=== PATIENT | male | born 1940 | race Caucasian/White ===

== ENCOUNTER 2021-07-03 05:42 | Outpatient (REF) | payer MEDICARE, BC, SELFPAY ==
[2021-07-05 15:27] LABS: TS Negative Control Passed; TS Panel A 0; TS Panel B 0; TS Positive Control Passed; TSpotTB Negative (Negative)
== END 2021-07-03 05:43 | disposition home or self-care (01) ==
LOC: HO.HSH2E 05:42
PROVIDERS: Visit Provider Nurse Practitioner Acute Care
DX: Z86.11 Personal history of tuberculosis (principal)
CPT/HCPCS: 36415; 86481

== ENCOUNTER 2021-07-14 14:42 | Outpatient (REF) | payer MEDICARE, BC, SELFPAY ==
[2021-07-14 16:23] LABS: CDiff Gene PCR NEGATIVE (Negative)
== END 2021-07-14 14:43 | disposition home or self-care (01) ==
LOC: HO.HSH2E 14:42
PROVIDERS: Visit Provider Internal Medicine Medical Oncology
DX: R19.7 Diarrhea, unspecified (principal)
CPT/HCPCS: 36415; 87045; 87046; 87177; 87209; 87493

== ENCOUNTER 2021-07-24 07:49 | Outpatient (REF) | payer MEDICARE, BC, SELFPAY ==
[2021-07-24 07:47] LABS: MANUAL DIFF FLAG NO
[2021-07-24 07:53] LABS: Basophils Percent Auto 0.2 % (0-2); Eosinophils Absolute Auto 0.2 X10*3/uL (0.0-0.4); Eosinophils Percent Auto 1.9 % (0-4); Hematocrit 41.8 % (42.0-52.0); Hemoglobin 12.8 g/dl (14.0-18.0); Imm Gran Abs Auto 0.02 X10*3/uL (0.00-0.03); Imm Gran Pct Auto 0.2 % (0.0-0.4); Lymphocytes Absolute Auto 1.6 X10*3/uL (1.2-4.9); Lymphocytes Percent Auto 18.9 % (20-40); Mean Corpuscular HGB Conc 30.6 g/dl (31.0-36.0); Mean Corpuscular Hemoglobin 26.9 pg (27.0-33.0); Mean Corpuscular Volume 87.8 fL (80.0-98.0); Mean Platelet Volume 11.8 fL (9.4-12.4); Monocytes Absolute Auto 0.9 X10*3/uL (0.1-1.2); Monocytes Percent Auto 10.5 % (2-11); Neutrophils Absolute Auto 5.9 x10*3/uL (2.0-8.3); Neutrophils Percent Auto 68.3 % (45-73); Platelet Count 166 X10*3/uL (160-400); Red Blood Count 4.76 X10*6/uL (4.60-5.80); Red Cell Distribution Width 14.7 % (11.0-16.0); White Blood Count 8.6 X10*3/uL (4.8-10.8)
[2021-07-24 08:43] LABS: Alanine Aminotransferase 13 U/L (0-40); Albumin Level 3.2 g/dL (3.5-5.0); Alkaline Phosphatase 95 U/L (39-117); Anion Gap 13 (12-20); Aspartate Amino Transferase 16 U/L (5-37); Bilirubin Total 0.4 mg/dL (0.0-1.0); Blood Urea Nitrogen 18 mg/dL (9-16); Calcium 8.8 mg/dL (8.4-10.2); Carbon Dioxide 34 mmol/L (22-29); Chloride 100 mmol/L (96-108); Estimated Glomerular Filt Rate > 60; Glucose Fasting 129 mg/dL (60-99); Potassium 4.1 mmol/L (3.3-5.1); Sodium 143 mmol/L (135-145)
[2021-07-24 09:05] LABS: Thyroid Stimulating Hormone 0.92 uIU/mL (0.32-4.0); Vitamin D 25-OH Total 43.2 ng/mL (>30)
[2021-07-24 09:13] LABS: Folate 12.8 ng/mL (> or = 4.0); Vitamin B12 842 pg/mL (200-900)
== END 2021-07-24 07:50 | disposition home or self-care (01) ==
LOC: HO.HSH2E 07:49
PROVIDERS: Visit Provider Internal Medicine Medical Oncology
DX: D64.9 Anemia, unspecified (principal)
CPT/HCPCS: 36415; 80053; 82306; 82607; 82746; 84443; 85025

== ENCOUNTER 2021-09-15 13:14 | Outpatient (REF) | payer MEDICARE, BC, SELFPAY ==
[2021-09-15 13:49] LABS: B Type Natriuretic Peptide 80 pg/mL (<100)
== END 2021-09-15 13:15 | disposition home or self-care (01) ==
LOC: HO.HSH2E 13:14
PROVIDERS: Visit Provider Internal Medicine
DX: R09.02 Hypoxemia (principal)
CPT/HCPCS: 36415; 83880

== ENCOUNTER 2021-09-17 05:45 | Outpatient (REF) | payer MEDICARE, BC, SELFPAY ==
[2021-09-17 07:47] LABS: MANUAL DIFF FLAG NO
[2021-09-17 07:53] LABS: Appearance Urine CLEAR; Color Urine YELLOW; Glucose Urine UA NEG (NEG); Leukocyte Esterase Urine TRACE (NEG); Nitrite Urine NEG (NEG); Urine Blood NEG (NEG); Urine Ketones 40 MG/DL (NEG); Urine Protein TRACE MG/DL (NEG-TRACE)
[2021-09-17 07:57] LABS: Basophils Percent Auto 0.1 % (0-2); Eosinophils Absolute Auto 0.1 X10*3/uL (0.0-0.4); Eosinophils Percent Auto 0.5 % (0-4); Hematocrit 39.9 % (42.0-52.0); Hemoglobin 12.7 g/dl (14.0-18.0); Imm Gran Abs Auto 0.07 X10*3/uL (0.00-0.03); Imm Gran Pct Auto 0.6 % (0.0-0.4); Lymphocytes Percent Auto 9.2 % (20-40); Mean Corpuscular HGB Conc 31.8 g/dl (31.0-36.0); Mean Corpuscular Hemoglobin 27.6 pg (27.0-33.0); Mean Corpuscular Volume 86.7 fL (80.0-98.0); Mean Platelet Volume 12.2 fL (9.4-12.4); Monocytes Absolute Auto 1.4 X10*3/uL (0.1-1.2); Monocytes Percent Auto 13.1 % (2-11); Neutrophils Absolute Auto 8.3 x10*3/uL (2.0-8.3); Neutrophils Percent Auto 76.5 % (45-73); Platelet Count 132 X10*3/uL (160-400); White Blood Count 10.8 X10*3/uL (4.8-10.8)
[2021-09-17 08:03] LABS: D Dimer High Sensitivity 536 NG/ML
[2021-09-17 08:06] LABS: Mucus Urine TRACE /LPF; RBC Urine 0 /HPF (0); Renal Epithelial Cells Urine TRACE /LPF; Squamous Epithelial Cell Urine TRACE /LPF
[2021-09-17 08:23] LABS: Alanine Aminotransferase 11 U/L (0-40); Albumin Level 3.3 g/dL (3.5-5.0); Alkaline Phosphatase 119 U/L (39-117); Anion Gap 12 (12-20); Aspartate Amino Transferase 13 U/L (5-37); Bilirubin Total 0.8 mg/dL (0.0-1.0); Blood Urea Nitrogen 13 mg/dL (9-16); Calcium 8.4 mg/dL (8.4-10.2); Carbon Dioxide 30 mmol/L (22-29); Chloride 98 mmol/L (96-108); Estimated Glomerular Filt Rate > 60; Glucose Random 128 mg/dL (60-115); Potassium 4.3 mmol/L (3.3-5.1); Sodium 136 mmol/L (135-145); Total Protein 6.2 g/dL (6.5-8.0)
[2021-09-17 08:30] LABS: Erythrocyte Sedimentation Rate 13 MM/HR (0-15)
== END 2021-09-17 05:46 | disposition home or self-care (01) ==
LOC: HO.HSH2E 05:45
PROVIDERS: Visit Provider Internal Medicine Medical Oncology
DX: R53.1 Weakness (principal)
CPT/HCPCS: 36415; 80053; 81001; 85025; 85379; 85652

== ENCOUNTER 2021-09-17 14:22 | Inpatient (IN) | payer MEDICARE, BC, SELFPAY ==
--- NOTE | ~2021-09-17 | CT_ITS ---
EXAMINATION: CT ANGIOGRAM OF THE CHEST WITH AND WITHOUT CONTRAST (CT PULMONARY ANGIOGRAM FOR PE) CLINICAL INFORMATION: Reason for Exam hypoxic, SOB elevated dimer COMPARISON: None TECHNIQUE: Prior to contrast administration, noncontrast localization images were obtained. Subsequently, multidetector volumetric imaging was performed from the thoracic inlet to below the diaphragms following the administration of 80 mL Omnipaque 350 intravenous contrast. No contrast reaction reported Sagittal, coronal, and MIP oblique sagittal reformatted images were obtained on the CT workstation, uploaded to PACS, and reviewed. This CT examination was performed using dose optimization techniques as appropriate, variously including the following: *Automated exposure control *Adjustment of mA and/or kV according to patient size (this includes techniques or standardized protocols for targeted exams where dose is matched to indication/reason for exam; i.e. extremities or head) *Use of iterative reconstruction technique Total exam dose-length product 521 mGy-cm FINDINGS: QUALITY OF STUDY/CONTRAST BOLUS: Satisfactory. PULMONARY ARTERIES: No central or segmental pulmonary emboli. THORACIC AORTA: No aneurysm or dissection. Normal three-vessel branching arch is noted. LUNG: The lungs are well-expanded and clear of acute pneumonic process. There is a left lower lobe basilar compressive atelectasis due to elevated left hemidiaphragm. PLEURA: Minimal bilateral posterior pleural thickening. MEDIASTINUM: Normal heart size. No pericardial effusion. No hilar or mediastinal lymphadenopathy. No evidence of septal bowing or right heart strain. CHEST WALL/AXILLA: No axillary or internal mammary lymphadenopathy. OSSEOUS STRUCTURES: There are degenerative disc changes with vacuum disc phenomena lower dorsal spine. No aggressive lytic or sclerotic process seen. UPPER ABDOMEN: Visualized liver, spleen, pancreas and bilateral adrenal glands are unremarkable. There is a large likely exophytic upper pole left renal cyst measuring 6.0 x 4 7.4 cm. The entire cyst is not in the [id number]. No reflux of contrast into the hepatic veins to suggest elevated right heart pressures. CT/CT angio chest PE protocol IMPRESSION: No evidence of PE. No evidence aortic dissection. Elevated left hemidiaphragm with left lower lobe compressive atelectasis. Minimal bilateral posterior pleural thickening seen. Large exophytic cyst upper pole left kidney. VTE: negative
[2021-09-17 14:33] VITALS: BP 150/78; PULSE 60; RESP 22; TEMP 36.7; O2SAT 97; BMI 36.9
--- NOTE | 2021-09-17 14:37 | ECG_ITS ---
Test Reason : weakness Blood Pressure : / mmHG Vent. Rate : 058 BPM Atrial Rate : 058 BPM P-R Int : 188 ms QRS Dur : 166 ms QT Int : 456 ms P-R-T Axes : 002 -73 004 degrees QTc Int : 447 ms Sinus bradycardia Left axis deviation Right bundle branch block Possible Lateral infarct , age undetermined Abnormal ECG No previous ECGs available Referred By: Ruthy Carias Electronically Signed By:KINGA WALLS MD
--- NOTE | 2021-09-17 14:45 | ED.GENADULT ---
HPI - General Adult General Chief complaint: Weakness Stated complaint: weakness sob Abn ddimer Time Seen by Provider: 09/17/21 14:35 Source: EMS Mode of arrival: EMS Limitations: other (Severe dementia) History of Present Illness HPI narrative: [facility] Couple of days ago, they noted that the patient was hypoxic, patient was started on oxygen. Patient's oxygen drops to the mid to low 80s on room air, 93-94% on 4 L. [facility], [facility] did blood work, which showed a D-dimer that is elevated. [facility] home staff spoke to the patient's healthcare proxy, who agreed to have the patient transferred to the hospital for PE evaluation. Patient is awake and alert, however he is unable to give any history due to dementia. Patient states he has no complaints. Related Data Allergies Allergy/AdvReac Type Severity Reaction Status Date / Time capsaicin [From Zostrix] Allergy Unknown Unknown Verified 09/17/21 14:53 prochlorperazine Allergy Unknown Unknown Verified 09/17/21 14:53 [From Compazine] erythromycin base Allergy Unknown Verified 09/17/21 14:53 anapril Allergy Severe Angioedema Uncoded 09/17/21 14:53 Review of Systems Review of Systems: Yes Unobtainable due to mental condition (Alzheimer's dementia) [facility] Past Medical History Medical History (Updated 09/17/21 @ 18:10 by Ruthy Carias MD) Anemia Angioedema Anxiety COPD (chronic obstructive pulmonary disease) Dementia Depression Diabetes Hyperlipidemia Hypertension Recurrent falls Social History Social History Advance Directives: Yes Advance Directives on File: Yes Advance Directives Date on File: 09/17/21 Physical Exam ED Vital Signs: Vital Signs - 24 hr 09/17/21 14:33 Temperature 98.0 F Pulse Rate 60 Respiratory Rate 22 H Blood Pressure 150/78 H Pulse Oximetry 97 Oxygen Delivery Method Nasal Cannula BMI result Body Mass Index 36.9 Const Other: Appearance: Alert. Oriented x1, No acute distress. Eyes: Pupils equal, round and reactive to light. ENT: Pharynx normal. Neck: Normal inspection. Neck supple. No lymph nodes noted. No crepitus CVS: Normal heart rate and rhythm. Pulses normal. Normal S1 and S2 Respiratory: No respiratory distress. No wheezing, oxygen saturation 93% on 4 L Abdomen: Soft and nontender. No rigidity. No distention. Skin: Skin warm and dry. Normal skin color. Normal skin turgor. Extremities: No lower extremity edema. No Lacerations. No Rash Neuro: No motor deficit. No sensory deficit. Moving all extremities. No slurred speech. CN 2 through 12 grossly intact Psych: calm, cooperative Course Course Course Narrative: Some of patient's labs are pending. Patient had labs drawn early this morning. D-dimer is elevated. We will go ahead and get a CTA to rule out PE It is unclear why patient is hypoxic, patient does not have pneumonia, does not seem to have a COPD exacerbation, does not have a PE. Patient does have atelectasis but unlikely to be causing this extent of hypoxia. I discussed the patient with Dr. Herrera, we will treat her as COPD exacerbation. Patient's white blood cell count within normal limits, lactic acid within normal limits. Medical Decision Making Lab Data Labs: Lab Results 09/17/21 09/17/21 09/17/21 Range/Units 14:56 14:56 14:56 PT 14.5 H (9.9-13.0) SEC INR 1.3 H (0.9-1.1) APTT 31.8 (24.1-38.0) SEC Lactic Acid 0.9 (0.5-2.0) mmol/L Troponin I High Sens (<3.5-35.0) ng/L B-Natriuretic Peptide (<100) pg/mL COVID-19 (NANDA) (Negative) COVID-19 [employer] 09/17/21 09/17/21 Range/Units 14:56 14:56 PT (9.9-13.0) SEC INR (0.9-1.1) APTT (24.1-38.0) SEC Lactic Acid (0.5-2.0) mmol/L Troponin I High Sens 6.0 (<3.5-35.0) ng/L B-Natriuretic Peptide 70 (<100) pg/mL COVID-19 (NANDA) Negative (Negative) COVID-19 Clin Com See Note Critical Care Time Critical Care Time Critical Care Time: Yes Total Critical Care Time: 45 Attestation: I have personally provided critical care time. Time includes review of lab data, radiology results, discussion with consultants, and monitoring for potential decompensation. Intervention performed as documented. Discharge Plan Discharge Clinical Impression: Hypoxic Patient Disposition: Admitted As Inpatient
[2021-09-17 15:14] LABS: INTERNATIONAL NORM RATIO 1.3 (0.9-1.1); Prothrombin Time 14.5 SEC (9.9-13.0)
[2021-09-17 15:15] LABS: Lactic Acid 0.9 mmol/L (0.5-2.0)
[2021-09-17 15:16] LABS: Partial Thromboplastin Time 31.8 SEC (24.1-38.0)
[2021-09-17 15:21] LABS: COVID-19 Test Negative (Negative)
[2021-09-17 15:25] LABS: B Type Natriuretic Peptide 70 pg/mL (<100)
[2021-09-17] MEDS: iohexoL 350 MG/ML 100 ML INFUS..BTL IV (16:02)
--- NOTE | 2021-09-17 18:40 | PHA.MEDREC ---
med rec complete, no issues Pharmacy Consult ? Medication Reconciliation Pharmacy has completed the medication reconciliation.
[2021-09-17 19:24] VITALS: PULSE 61; RESP 16; TEMP 36.8; O2SAT 96
[2021-09-17] MEDS: methylPREDNISolone Sod Succ 125 MG/2 ML VIAL IVPUSH (19:30)
[2021-09-17] MEDS: Piperacillin Sodium/Tazobactam 3.375 GM in 0.9 % Sodium Chloride 50 ML IV (19:34)
--- NOTE | 2021-09-17 22:43 | PM.IMHP ---
History of Present Illness Date of Service: 09/17/21 Chief Complaint: Shortness of breath 81-year-old male with a past medical history of hypertension, hyperlipidemia, Alzheimer's dementia, anxiety, depression [facility] [place] [facility] with a chief complaint of shortness of breath/hypoxia. Patient is confused at baseline. Alert and awake at the time of my entry. On supplemental oxygen. Breathing comfortably. Patient is a poor historian. Denies any pain. Per staff patient has been having shortness of breath and hypoxia past couple days; and on blood work today noted to have elevated D-dimer and subsequently sent to the ER for further evaluation. Denies patient having any nausea vomiting diarrhea, cough or sputum production, GI symptoms. Review of all other systems is limited ER course: Per ER team patient with minimal exertion desaturating to 70s. At rest patient is saturating well on supplemental oxygen. Slightly diminished breath sounds that Moving air wiliam will sintia. Given nebulizations and steroids. CT angio chest was done which showed no evidence of pulmonary embolism. Admitted to the hospital with impression of possible COPD. [facility] Medical History (Updated 09/17/21 @ 18:10 by Ruthy Carias MD) Anemia Angioedema Anxiety COPD (chronic obstructive pulmonary disease) Dementia Depression Diabetes Hyperlipidemia Hypertension Recurrent falls Pertinent family history: Patient unable to provide information Social History Advance Directives: Yes Advance Directives on File: Yes Advance Directives Date on File: 09/17/21 Meds Allergies Allergy/AdvReac Type Severity Reaction Status Date / Time capsaicin [From Zostrix] Allergy Unknown Unknown Verified 09/17/21 14:53 prochlorperazine Allergy Unknown Unknown Verified 09/17/21 14:53 [From Compazine] erythromycin base Allergy Unknown Verified 09/17/21 14:53 anapril Allergy Severe Angioedema Uncoded 09/17/21 14:53 Active Medications: Current Medications Acetaminophen (Acetaminophen 325 Mg Tablet) 650 mg PO Q6H PRN PRN Reason: Pain, Mild (Pain Scale 1-3) Albuterol/Ipratropium (Albuterol/Iprat 2.5/0.5mg 3 Ml Ampul.Neb) 3 ml INHALE RQ4H WHILE AWAKE CHRISTIANO Albuterol/Ipratropium (Albuterol/Iprat 2.5/0.5mg 3 Ml Ampul.Neb) 3 ml INHALE RQ4H PRN PRN Reason: Shortness of Breath/Wheezing Doxycycline Hyclate (Doxycycline Hyclate 100 Mg Tablet) 100 mg PO Q12H [facility] Enoxaparin Sodium (Enoxaparin Sodium 40 Mg/0.4 Ml Syringe) 40 mg SUBCUT Q24H [facility] Hydromorphone HCl (Hydromorphone Hcl 0.5 Mg/0.5 Ml Syringe) 0.5 mg IVPUSH Q4H PRN; Protocol PRN Reason: Pain, Severe (Pain Scale 7-10) Melatonin (Melatonin 3 Mg Tablet) 6 mg PO BEDTIME PRN PRN Reason: Insomnia Methylprednisolone Sodium Succinate (Methylprednisolone Sod Succ 40 Mg/Ml Vial) 40 mg IVPUSH Q6H [facility] Pharmacy Consult (Consult Rx Perform Med Rec) 1 each MISCELLANE ONCE PRN PRN Reason: Consult order Senna (Sennosides 8.6 Mg Tablet) 17.2 mg PO BEDTIME PRN PRN Reason: Constipation Sodium Chloride (0.9 % Sodium Chloride Flush 3 Ml Syringe) 3 ml IVFLUSH QSHIFT [facility] Home Medications Medication Instructions Recorded Confirmed Last Taken Type aspirin 81 mg tablet,delayed 81 mg PO DAILY 09/17/21 09/17/21 09/17/21 History release atorvastatin 10 mg tablet 10 mg PO DAILY 09/17/21 09/17/21 09/17/21 History carvedilol 12.5 mg tablet 12.5 mg PO BID 09/17/21 09/17/21 09/17/21 09:00 History cholecalciferol (vitamin D3) 25 50 mcg PO DAILY 09/17/21 09/17/21 09/17/21 History mcg (1,000 unit) tablet cyanocobalamin (vitamin B-12) 500 1,000 mcg PO DAILY 09/17/21 09/17/21 09/17/21 History mcg tablet donepezil 10 mg tablet 10 mg PO DAILY 09/17/21 09/17/21 09/17/21 History folic acid 1 mg tablet 1 mg PO Q2D@1000 09/17/21 09/17/21 09/16/21 History melatonin 3 mg tablet 3 mg PO BEDTIME 09/17/21 09/17/21 09/16/21 History memantine 5 mg tablet 5 mg PO BID 09/17/21 09/17/21 09/17/21 History paroxetine HCl 40 mg tablet 40 mg PO DAILY 09/17/21 09/17/21 09/17/21 History quetiapine 25 mg tablet (Seroquel) 25 mg PO BID 09/17/21 09/17/21 09/17/21 History tiotropium bromide 18 mcg capsule 1 cap inhalation DAILY 09/17/21 09/17/21 09/17/21 History with inhalation device (Spiriva with HandiHaler) trazodone 100 mg tablet 100 mg PO BEDTIME 09/17/21 09/17/21 09/16/21 History vit C 250 mg-vit E 90 mg-zinc 40 1 tab PO BID 09/17/21 09/17/21 09/17/21 History mg-copper 1 [id number] capsule (PreserVision AREDS-2) Physical Exam Vital Signs and Narrative: Vital Signs: Last Vital Signs Temp 98.3 F 09/17/21 19:24 Pulse 61 09/17/21 19:24 Resp 16 09/17/21 19:24 BP 150/78 H 09/17/21 14:33 Pulse Ox 96 09/17/21 19:24 O2 Del Method 09/17/21 19:24 O2 Flow Rate 2 09/17/21 19:24 Oxygen Flow Rate 4 09/17/21 14:33 BMI result Body Mass Index 36.9 Gen: Appears be in no acute distress; on supplemental oxygen. Speaks in full sentences. HEENT: NCAT, Moist mucosa. Pulmonary: Slightly diminished breath sounds CVS: Normal S1-S2 Abdomen: BS+, Soft, Nontender Extremities: Warm well perfused Neuro: Alert and awake. Results Labs Labs: Laboratory Results - last 24 hr 09/17/21 09/17/21 09/17/21 14:56 14:56 14:56 PT 14.5 H INR 1.3 H APTT 31.8 Lactic Acid 0.9 Troponin I High Sens B-Natriuretic Peptide COVID-19 (NANDA) COVID-19 Clin Com 09/17/21 09/17/21 14:56 14:56 PT INR APTT Lactic Acid Troponin I High Sens 6.0 B-Natriuretic Peptide 70 COVID-19 (NANDA) Negative COVID-19 Clin Com See Note Imaging Radiologist's Impressions: Impressions Chest CTA 09/17/21 16:04 IMPRESSION: No evidence of PE. No evidence aortic dissection. Elevated left hemidiaphragm with left lower lobe compressive atelectasis. Minimal bilateral posterior pleural thickening seen. Large exophytic cyst upper pole left kidney. VTE: negative Assessment and Plan (1) Hypoxic: Status: Acute Plan 81-year-old male with a past medical history of hypertension, hyperlipidemia, Alzheimer's dementia, anxiety, depression presented [facility] [place] [facility] with a chief complaint of shortness of breath/hypoxia. Hypoxia/COPD : ProBNP within normal limits CT chest showed no evidence of pulmonary embolism or pneumonia but noted to have compressive atelectasis. EKG nonischemic and troponin negative Continue nebulizations standing and p.r.n. Solu-Medrol IV q.i.d. Supplemental oxygen p.r.n. Pulmonology consult History of hypertension/hyperlipidemia: Continue home aspirin, statin, carvedilol History of dementia: Continue home donepezil, memantine, trazodone History of depression: Continue home paroxetine DVT prophylaxis: Lovenox Code status: DNR/DNI. Patient has molst form. Quality Stroke Does the patient have a stroke diagnosis?: No VTE Prior VTE?: No VTE Risk Level:: Medical - moderate - high VTE Device Contraindication: Treatment Not Indicated VTE Drug Contraindication: N/A - Med Ordered
[2021-09-18] VITALS (8 sets, daily range): BP systolic 137–177; BP diastolic 66–82; PULSE 63–75; RESP 14–21; TEMP 36–36.9; O2SAT 89–98
[2021-09-18] MEDS: Enoxaparin Sodium 40 MG/0.4 ML SYRINGE SUBCUT (00:13)
[2021-09-18] MEDS: methylPREDNISolone Sod Succ 40 MG/ML VIAL IVPUSH ×2 (00:13→05:04)
--- NOTE | 2021-09-18 00:22 | PC.NURSE ---
Report called to overflow unit-pt assigned to bed 8.
[2021-09-18] MEDS: 0.9 % Sodium Chloride Flush 3 ML SYRINGE IVFLUSH (00:23)
--- NOTE | 2021-09-18 01:44 | PC.NURSE ---
pt pulling nasal cannula and SP02 off. pt reminded to keep this on. poor memory. pt yelling out that he needs to use the BR. pt assisted to use urinal and voided on the floor. resting in bed at this time
--- NOTE | 2021-09-18 03:29 | PC.NURSE ---
pt pleasantly confused. asked to use the BR again, assisted by crane service technician. pt able to sit on edge of bed and void although did miss the urinal and voided on floor
[2021-09-18 05:10] LABS: Hematocrit 42.8 % (42.0-52.0); Hemoglobin 13.7 g/dl (14.0-18.0); Imm Gran Abs Auto 0.05 X10*3/uL (0.00-0.03); Imm Gran Pct Auto 0.6 % (0.0-0.4); Lymphocytes Absolute Auto 0.5 X10*3/uL (1.2-4.9); Lymphocytes Percent Auto 5.6 % (20-40); MANUAL DIFF FLAG SCAN; Mean Corpuscular Hemoglobin 27.6 pg (27.0-33.0); Mean Corpuscular Volume 86.1 fL (80.0-98.0); Mean Platelet Volume 11.9 fL (9.4-12.4); Monocytes Absolute Auto 0.2 X10*3/uL (0.1-1.2); Monocytes Percent Auto 2.2 % (2-11); Neutrophils Absolute Auto 8.1 x10*3/uL (2.0-8.3); Neutrophils Percent Auto 91.6 % (45-73); Platelet Count 158 X10*3/uL (160-400); Red Blood Count 4.97 X10*6/uL (4.60-5.80); Red Cell Distribution Width 14.7 % (11.0-16.0); SCAN SMEAR FLAG 1; White Blood Count 8.9 X10*3/uL (4.8-10.8)
[2021-09-18 05:38] LABS: SLIDE REVIEW VERIFIED
[2021-09-18 06:40] LABS: Alanine Aminotransferase 13 U/L (0-40); Albumin Level 3.4 g/dL (3.5-5.0); Alkaline Phosphatase 136 U/L (39-117); Anion Gap 14 (12-20); Aspartate Amino Transferase 15 U/L (5-37); Bilirubin Total 0.8 mg/dL (0.0-1.0); Blood Urea Nitrogen 15 mg/dL (9-16); Calcium 8.6 mg/dL (8.4-10.2); Carbon Dioxide 31 mmol/L (22-29); Chloride 96 mmol/L (96-108); Creatinine Clr Calc Pharmacy 77.5; Estimated Glomerular Filt Rate > 60; Glucose Random 186 mg/dL (60-115); Potassium 4.7 mmol/L (3.3-5.1); Sodium 136 mmol/L (135-145); Total Protein 6.6 g/dL (6.5-8.0)
[2021-09-18] MEDS: Aspirin Enteric Coated 81 MG TABLET.DR PO (08:33)
[2021-09-18] MEDS: Cyanocobalamin (Vitamin B-12) 1,000 MCG TABLET 1000 MCG PO (08:33)
[2021-09-18] MEDS: carvediloL 12.5 MG TABLET PO (08:33)
[2021-09-18] MEDS: PARoxetine HCL 40 MG TABLET PO (08:33)
[2021-09-18] MEDS: Cholecalciferol (Vitamin D3) 25 MCG TABLET 50 MCG PO (08:33)
[2021-09-18] MEDS: Atorvastatin Calcium 10 MG TABLET PO (08:33)
[2021-09-18] MEDS: QUEtiapine Fumarate 25 MG TABLET PO (08:33)
[2021-09-18] MEDS: Folic Acid 1 MG TABLET PO (08:33)
[2021-09-18] MEDS: Donepezil HCl 10 MG TABLET PO (08:33)
--- NOTE | 2021-09-18 11:46 | PM.DS ---
DS: Providers Provider Date of Service: 09/18/21 Date of admission: 09/17/21 22:37 Primary care physician: Enio Mcgraw MD Consults: 09/17/21 22:37 Consult to Pulmonology Routine Consulting Provider: Jennifer Pozo Reason for consultation: Hypoxia DS: Diagnosis Discharge Diagnosis (1) Hypoxic: Status: Acute DS: Summary Hospital Course Hospital Course: from initial hpi: Chief Complaint: Shortness of breath 81-year-old male with a past medical history of hypertension, hyperlipidemia, Alzheimer's dementia, anxiety, depression presented from the [facility] with a chief complaint of shortness of breath/hypoxia.? Patient is confused at baseline.? Alert and awake at the time of my entry.? On supplemental oxygen.? Breathing comfortably.? Patient is a poor historian.? Denies any pain.? Per staff patient has been having shortness of breath and hypoxia past couple days; and on blood work today noted to have elevated D-dimer and subsequently sent to the ER for further evaluation.? Denies patient having any nausea vomiting diarrhea, cough or sputum production, GI symptoms.? Review of all other systems is limited ER course: Per ER team patient with minimal exertion desaturating to 70s.? At rest patient is saturating well on supplemental oxygen.? Slightly diminished breath sounds that Moving air wiliam will sintia.? Given nebulizations and steroids.? CT angio chest was done which showed no evidence of pulmonary embolism.? Admitted to the hospital with impression of possible COPD. hospital course: Patient was admitted for acute hypoxic respiratory failure, likely due to atelectasis from poor inspiratory effort/restrictive lung disease. previous PFTs were more significant for FVC of 25%, than any obstructive pattern. By next morning patient's symptoms had totally resolved. He was saturating 93% on 2 L and [facility] Patient will be discharged, recommended incentive spirometry. Following up with Pulmonary. Firs history of dementia he will continue on Namenda and Aricept. For hyperlipidemia continue on statin. For mood disorder will continue Paxil. Time Spent with Patient Time attestation: Total time spent providing and/or coordinating discharge services: Discharge coordination time: Greater than 30 minutes Quality: Safe Use of Opioids Does Pt have an Active Cancer Diagnosis on the Problem List?: No Quality: Stroke Does the patient have a stroke diagnosis?: No Physical Exam Vital Signs: Vital Signs: Last Vital Signs Temp 96.8 F 09/18/21 11:33 Pulse 71 09/18/21 11:33 Resp 19 09/18/21 11:33 BP 137/80 09/18/21 11:33 Pulse Ox 93 09/18/21 11:33 O2 Del Method 09/18/21 11:33 O2 Flow Rate 2 09/18/21 11:33 Oxygen Flow Rate 4 09/17/21 14:33 BMI result Body Mass Index 36.9 General: AO X 2, no acute distress Resp: diminished bilateral, no accessory muscles used CVS: S1,S2,RRR GI: soft, non tender, non distended Neuro: motor grossly intact, alert Psych: appropriate affect, poor insight DS: Data Data Completed and Pending Labs on day of discharge: Laboratory Results - last 24 hr 09/17/21 09/17/21 09/17/21 14:56 14:56 14:56 WBC RBC Hgb Hct MCV MCH MCHC RDW Plt Count MPV Immature Gran % (Auto) Neut % (Auto) Lymph % (Auto) [place] % (Auto) Eos % (Auto) Baso % (Auto) Lymph # (Auto) [place] # (Auto) Eos # (Auto) Baso # (Auto) Abs Immat Gran (auto) Absolute Neuts (auto) Absolute Nucleated RBC Nucleated RBC % (auto) Smear Tech's Comments PT 14.5 H INR 1.3 H APTT 31.8 Sodium Potassium Chloride Carbon Dioxide Anion Gap BUN Creatinine Estim Creat Clear Calc Estimated GFR Random Glucose Lactic Acid 0.9 Calcium Total Bilirubin AST ALT Alkaline Phosphatase Troponin I High Sens B-Natriuretic Peptide Total Protein Albumin COVID-19 (NANDA) COVID-19 Clin Com 09/17/21 09/17/21 09/18/21 14:56 14:56 04:19 WBC 8.9 RBC 4.97 Hgb 13.7 L Hct 42.8 MCV 86.1 MCH 27.6 MCHC 32.0 RDW 14.7 Plt Count 158 L MPV 11.9 Immature Gran % (Auto) 0.6 H Neut % (Auto) 91.6 H Lymph % (Auto) 5.6 L [place] % (Auto) 2.2 Eos % (Auto) 0.0 Baso % (Auto) 0.0 Lymph # (Auto) 0.5 L [place] # (Auto) 0.2 Eos # (Auto) 0.0 Baso # (Auto) 0.0 Abs Immat Gran (auto) 0.05 H Absolute Neuts (auto) 8.1 Absolute Nucleated RBC 0.000 Nucleated RBC % (auto) 0.0 Smear Tech's Comments VERIFIED PT INR APTT Sodium Potassium Chloride Carbon Dioxide Anion Gap BUN Creatinine Estim Creat Clear Calc Estimated GFR Random Glucose Lactic Acid Calcium Total Bilirubin AST ALT Alkaline Phosphatase Troponin I High Sens 6.0 B-Natriuretic Peptide 70 Total Protein Albumin COVID-19 (NANDA) Negative COVID-19 Clin Com See Note 09/18/21 06:01 WBC RBC Hgb Hct MCV MCH MCHC RDW Plt Count MPV Immature Gran % (Auto) Neut % (Auto) Lymph % (Auto) [place] % (Auto) Eos % (Auto) Baso % (Auto) Lymph # (Auto) [place] # (Auto) Eos # (Auto) Baso # (Auto) Abs Immat Gran (auto) Absolute Neuts (auto) Absolute Nucleated RBC Nucleated RBC % (auto) Smear Tech's Comments PT INR APTT Sodium 136 Potassium 4.7 Chloride 96 Carbon Dioxide 31 H Anion Gap 14 BUN 15 Creatinine 0.93 Estim Creat Clear Calc 77.5 Estimated GFR > 60 Random Glucose 186 H D Lactic Acid Calcium 8.6 Total Bilirubin 0.8 AST 15 ALT 13 Alkaline Phosphatase 136 H Troponin I High Sens B-Natriuretic Peptide Total Protein 6.6 Albumin 3.4 L COVID-19 (NANDA) COVID-19 Clin Com Discharge Plan Discharge Patient Disposition: [facility] Discharge Diagnosis: 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 Referrals: Enio Mcgraw MD [Primary Care Provider] - 1 Week Discharge Medications: Continued aspirin 81 mg Tablet,Delayed Release (Dr/Ec) 81 mg PO DAILY atorvastatin 10 mg Tablet 10 mg PO DAILY carvedilol 12.5 mg Tablet 12.5 mg PO BID Rx Instructions: must administer with a meal/food cholecalciferol (vitamin D3) 25 mcg (1,000 unit) Tablet 50 mcg PO DAILY cyanocobalamin (vitamin B-12) 500 mcg Tablet 1,000 mcg PO DAILY donepezil 10 mg Tablet 10 mg PO DAILY folic acid 1 mg Tablet 1 mg PO Q2D@1000 melatonin 3 mg Tablet 3 mg PO BEDTIME memantine 5 mg Tablet 5 mg PO BID paroxetine HCl 40 mg Tablet 40 mg PO DAILY PreserVision AREDS-2 250-90-40-1 mg Capsule 1 tab PO BID quetiapine [Seroquel] 25 mg Tablet 25 mg PO BID Spiriva with HandiHaler 18 mcg Capsule, W/Inhalation Device 1 cap INHALATION DAILY Rx Instructions: puncture 1 cap using device; one dose = 2 inhalations trazodone 100 mg Tablet 100 mg PO BEDTIME Discharge Orders: Discharge Order (Routine); Ordered 09/18/21 Ordered By: Kenton Bond Diet: advance to usual diet Activity on Discharge: As tolerated Stand Alone Forms: Patient Portal Discharge page Care Plan Goals: avoid hospitalizations Health Concerns: hypoxia, weak inspiratory effort Plan of Treatment: incentive spirometry, wean o2 as tolerated Assessment: see above
--- NOTE | 2021-09-18 12:17 | MHC.CM.PN ---
PT IS A LTC RESIDENT OF THE [facility] PT USES A CANE OR WALKER AT BASELINE PT HAS A HCP AND MOLST ON FILE PT IS COVID-19 VACCINATED CM CALLED PTS SON/HCP, RUBÉN [phone] INFORMED HIM OF PENDING DC AND DELIVERED PTS IMM. COPY SENT TO MEDICAL RECORDS PT WILL DC BACK TO [facility] TODAY VIA BLS AT 1330 HOURS
--- NOTE | 2021-09-18 13:17 | PM.CNPUL ---
History of Present Illness History of Present Illness Consult date: 09/18/21 Reason for consult: dyspnea and hypoxemia Chief complaint: Hypoxia Narrative: I was us to see this 81 years old gentleman from [facility], for pulmonary evaluation and advise. He was sent to the emergency room because for the last 2-3 days his O2 sats were low, on any minimal effort. There is no history of fever or chills or chest pain. Patient is case of the dementia, and not able to give any details. Most of the information I have acted from the medical records. None the less he denies any respiratory distress at this time. Past history includes moderate obesity, Alzheimer,s disease with significant dementia, hypertension, hyperlipidemia, anxiety and depression. He has had a previous pulmonary function test which showed restrictive pulmonary disorder. Patient is not on any bronchodilators, or oxygen. According to the notes from the staff at [facility], he was desaturating quickly on any physical exertion like walking. His workup includes chest x-ray and CTA of the chest, it is negative for pulmonary embolism or congestive heart failure. He does have large density in the left lower lobe probably due to atelectasis. And also has chronically elevated left hemidiaphragm. Review of Systems Review of Systems: Yes Unobtainable due to mental condition PMFSH Past Medical History Medical History Anemia Angioedema Anxiety Dementia Depression Diabetes Hyperlipidemia Hypertension Recurrent falls Restrictive lung disease Family History Family History Other No family history of coronary artery disease Social History Social History Alcohol intake: never Patient Tobacco Use Status: Former Tobacco user Quit Date: remote history of cigar use Use of substances other than those prescribed or required for medical reasons: No Advance Directives: Yes Advance Directives on File: Yes Advance Directives Date on File: 09/17/21 Meds Allergies Allergy/AdvReac Type Severity Reaction Status Date / Time enalapril Allergy Severe Angioedema Verified 09/18/21 07:23 capsaicin [From Zostrix] Allergy Unknown Unknown Verified 09/17/21 14:53 prochlorperazine Allergy Unknown Unknown Verified 09/17/21 14:53 [From Compazine] erythromycin base Allergy Unknown Verified 09/17/21 14:53 Active Medications: Current Medications Acetaminophen (Acetaminophen 325 Mg Tablet) 650 mg PO Q6H PRN PRN Reason: Pain, Mild (Pain Scale 1-3) Albuterol/Ipratropium (Albuterol/Iprat 2.5/0.5mg 3 Ml Ampul.Neb) 3 ml INHALE RQ4H WHILE AWAKE [facility] Last Admin: 09/18/21 10:54 Dose: Not Given Albuterol/Ipratropium (Albuterol/Iprat 2.5/0.5mg 3 Ml Ampul.Neb) 3 ml INHALE Q4H PRN PRN Reason: Shortness of Breath/Wheezing Aspirin (Aspirin Enteric Coated 81 Mg Tablet.Dr) 81 mg PO DAILY [facility] Last Admin: 09/18/21 08:33 Dose: 81 mg Atorvastatin Calcium (Atorvastatin Calcium 10 Mg Tablet) 10 mg PO DAILY [facility] Last Admin: 09/18/21 08:33 Dose: 10 mg Carvedilol (Carvedilol 12.5 Mg Tablet) 12.5 mg PO BID [facility]; Protocol Last Admin: 09/18/21 08:33 Dose: 12.5 mg Cyanocobalamin (Cyanocobalamin (Vitamin B-12) 1,000 Mcg Tablet) 1,000 mcg PO DAILY [facility] Last Admin: 09/18/21 08:33 Dose: 1,000 mcg Donepezil HCl (Donepezil Hcl 10 Mg Tablet) 10 mg PO DAILY [facility] Last Admin: 09/18/21 08:33 Dose: 10 mg Enoxaparin Sodium (Enoxaparin Sodium 40 Mg/0.4 Ml Syringe) 40 mg SUBCUT Q24H [facility] Last Admin: 09/18/21 00:13 Dose: 40 mg Folic Acid (Folic Acid 1 Mg Tablet) 1 mg PO Q2D@1000 [facility] Last Admin: 09/18/21 08:33 Dose: 1 mg Hydromorphone HCl (Hydromorphone Hcl 0.5 Mg/0.5 Ml Syringe) 0.5 mg IVPUSH Q4H PRN; Protocol PRN Reason: Pain, Severe (Pain Scale 7-10) Melatonin (Melatonin 3 Mg Tablet) 6 mg PO BEDTIME PRN PRN Reason: Insomnia Melatonin (Melatonin 3 Mg Tablet) 3 mg PO BEDTIME [facility] Memantine (Memantine Hcl 5 Mg Tablet) 5 mg PO BID [facility] Last Admin: 09/18/21 11:09 Dose: Not Given Methylprednisolone Sodium Succinate (Methylprednisolone Sod Succ 40 Mg/Ml Vial) 40 mg IVPUSH Q12H [facility] Paroxetine HCl (Paroxetine Hcl 40 Mg Tablet) 40 mg PO DAILY [facility] Last Admin: 09/18/21 08:33 Dose: 40 mg Pharmacy Consult (Consult Rx Perform Med Rec) 1 each MISCELLANE ONCE PRN PRN Reason: Consult order Quetiapine Fumarate (Quetiapine Fumarate 25 Mg Tablet) 25 mg PO BID [facility] Last Admin: 09/18/21 08:33 Dose: 25 mg Senna (Sennosides 8.6 Mg Tablet) 17.2 mg PO BEDTIME PRN PRN Reason: Constipation Sodium Chloride (0.9 % Sodium Chloride Flush 3 Ml Syringe) 3 ml IVFLUSH QSHIFT [facility] Last Admin: 09/18/21 09:15 Dose: Not Given Tiotropium [place] (Tiotropium [place] 18 Mcg Cap.W.Dev) 1 puff INHALE RDAILY [facility] Last Admin: 09/18/21 08:22 Dose: Not Given Trazodone HCl (Trazodone Hcl 100 Mg Tablet) 100 mg PO BEDTIME [facility] Vitamin D (Cholecalciferol (Vitamin D3) 25 Mcg Tablet) 50 mcg PO DAILY [facility] Last Admin: 09/18/21 08:33 Dose: 50 mcg Home Medications Medication Instructions Recorded Confirmed Last Taken Type aspirin 81 mg tablet,delayed 81 mg PO DAILY 09/17/21 09/17/21 09/17/21 History release atorvastatin 10 mg tablet 10 mg PO DAILY 09/17/21 09/17/21 09/17/21 History carvedilol 12.5 mg tablet 12.5 mg PO BID 09/17/21 09/17/21 09/17/21 09:00 History cholecalciferol (vitamin D3) 25 50 mcg PO DAILY 09/17/21 09/17/21 09/17/21 History mcg (1,000 unit) tablet cyanocobalamin (vitamin B-12) 500 1,000 mcg PO DAILY 09/17/21 09/17/21 09/17/21 History mcg tablet donepezil 10 mg tablet 10 mg PO DAILY 09/17/21 09/17/21 09/17/21 History folic acid 1 mg tablet 1 mg PO Q2D@1000 09/17/21 09/17/21 09/16/21 History melatonin 3 mg tablet 3 mg PO BEDTIME 09/17/21 09/17/21 09/16/21 History memantine 5 mg tablet 5 mg PO BID 09/17/21 09/17/21 09/17/21 History paroxetine HCl 40 mg tablet 40 mg PO DAILY 09/17/21 09/17/21 09/17/21 History quetiapine 25 mg tablet (Seroquel) 25 mg PO BID 09/17/21 09/17/21 09/17/21 History tiotropium bromide 18 mcg capsule 1 cap inhalation DAILY 09/17/21 09/17/21 09/17/21 History with inhalation device (Spiriva with HandiHaler) trazodone 100 mg tablet 100 mg PO BEDTIME 09/17/21 09/17/21 09/16/21 History vit C 250 mg-vit E 90 mg-zinc 40 1 tab PO BID 09/17/21 09/17/21 09/17/21 History mg-copper 1 [id number] capsule (PreserVision AREDS-2) Physical Exam Vital Signs: Vital Signs: Last Vital Signs Temp 96.8 F 09/18/21 11:33 Pulse 71 09/18/21 11:33 Resp 19 09/18/21 11:33 BP 137/80 09/18/21 11:33 Pulse Ox 93 09/18/21 11:33 O2 Del Method 09/18/21 11:33 O2 Flow Rate 2 09/18/21 11:33 Oxygen Flow Rate 4 09/17/21 14:33 BMI result Body Mass Index 36.9 Const: General: comfortable, no acute distress, alert and awake (But to it not able to converse clearly.) HEENT: Head: Yes normal to inspection General nose exam: No nasal polyps present and No nasal discharge present Face and sinus: Yes sinuses nontender Mouth: oropharynx normal Throat: Yes posterior oropharynx normal Eyes: General: appearance normal, both eyes and all related structures Neck: Neck: Yes normal visual inspection, Yes no lymphadenopathy, Yes trachea midline and Yes no JVD Thyroid: Thyroid normal Chest: Chest palpation & inspection: normal inspection of the chest, normal palpation of entire chest wall and other (There is dullness to percussion over the left lower lobe.) Resp: Other: Percussion note dull over the left lower lobe. Breath sounds are generally diminished, especially over both bases. No crepitations or wheezes are heard. Cardio: Palpation: PMI not normal (Not palpable) Rate: regular rate Rhythm: regular rhythm Heart sounds: no gallops and no murmurs Peripheral pulses: Peripheral pulses 2+ throughout GI: Palpation (GI): Soft to palpation, nontender, No hepatosplenomegaly present and no masses Auscultation: normal bowel sounds Back/Spine/Pelvis: Other: Could not examine Skin: General skin exam: no rashes or lesions noted Neuro: General: no focal motor deficits Cranial nerves: Yes CN's II-XII intact bilaterally Extrem: General: Yes normal to inspection, Yes no clubbing, cyanosis or edema and Yes no calf tenderness Psych: Appearance: grossly normal Speech and movement: Normal speech and movement present Results Laboratory Findings CBC and BMP: 09/18/21 04:19 09/18/21 06:01 ABG, PT/INR, D-dimer: PT/INR, D-dimer PT 14.5 SEC (9.9-13.0) H 09/17/21 14:56 INR 1.3 (0.9-1.1) H 09/17/21 14:56 Abnormal lab findings: Abnormal Labs 09/17/21 09/18/21 09/18/21 14:56 04:19 06:01 Hgb 13.7 L Plt Count 158 L Immature Gran % (Auto) 0.6 H Neut % (Auto) 91.6 H Lymph % (Auto) 5.6 L Lymph # (Auto) 0.5 L Abs Immat Gran (auto) 0.05 H PT 14.5 H INR 1.3 H Carbon Dioxide 31 H Random Glucose 186 H D Alkaline Phosphatase 136 H Albumin 3.4 L Diagnostic Findings Chest x-ray: report reviewed and image reviewed CT scan - chest: report reviewed and image reviewed Assessment and Plan (1) Restrictive lung disease: Status: Acute (2) Elevated diaphragm: Status: Acute (3) Atelectasis of left lung: Status: Acute (4) Hypoxemia: Status: Acute Plan This patient is grossly obese, and has significant restrictive lung disease. At present the restriction is aggravated by elevated left hemidiaphragm and left lower lobe atelectasis, A round density in the left lower lobe is probably due to rounded atelectasis. Hypoxemia secondary to combination of above issues. RECC . Patient needs to do deep breathing exercises, incentive spirometry device should be used, and he should be instructed to do breathing exercises at least 3 times a day. O2 supplementation 2-4 L per minute, to keep O2 sat above 90%. May use DuoNeb updrafts Q 6 hours while awake p.r.n., to improve his ventilation and to mobilize the secretions. No need of antibiotics at this time. No need of anticoagulation. Thank you for asthma to see this patient. Procedures Date of Service Date of Service: 09/18/21
== END 2021-09-18 14:18 | disposition skilled nursing facility (03) | DRG 205 ==
LOC: HO.ED 18:10 → HO.EDOVER 22:46
PROVIDERS: Admitting Provider Hospitalist; Emergency Provider Emergency Medicine; PCP Internal Medicine Medical Oncology; Visit Provider Internal Medicine
DX: J98.4 Other disorders of lung (principal); J96.01 Acute respiratory failure with hypoxia; J98.11 Atelectasis; J98.6 Disorders of diaphragm; E78.5 Hyperlipidemia, unspecified; I10 Essential (primary) hypertension; F32.A Depression, unspecified; E11.9 Type 2 diabetes mellitus without complications; Z66 Do not resuscitate; E66.8 Other obesity; Z68.36 Body mass index [BMI] 36.0-36.9, adult; G30.9 Alzheimer's disease, unspecified; F02.80 Dementia in other diseases classified elsewhere, unspecified severity, without behavioral disturbance, psychotic disturbance, mood disturbance, and anxiety; Z20.822 Contact with and (suspected) exposure to COVID-19; Z87.891 Personal history of nicotine dependence; Z88.8 Allergy status to other drugs, medicaments and biological substances; Z79.82 Long term (current) use of aspirin; Z79.899 Other long term (current) drug therapy
CPT/HCPCS: 36415; 71275; 80053; 81001; 83605; 83880; 84484; 85025; 85379; 85610; 85652; 85730; 87040; 87635; 93005; 96365; 96375; 99285; J1650; J2543; J2920; J2930; Q9967

== ENCOUNTER 2021-10-10 13:16 | Outpatient (REF) | payer MEDICARE, BC, SELFPAY ==
[2021-10-10 13:54] LABS: Appearance Urine HAZY; Color Urine YELLOW; Glucose Urine UA 100 MG/DL (NEG); Leukocyte Esterase Urine 1+ (NEG); Nitrite Urine NEG (NEG); Specific Gravity - Urine 1.025 (1.005-1.025); Urine Blood NEG (NEG); Urine Ketones NEG (NEG); Urine Protein NEG (NEG-TRACE)
[2021-10-10 14:22] LABS: Bacteria Urine TRACE /LPF; Squamous Epithelial Cell Urine TRACE /LPF
[2021-10-10 14:23] LABS: RBC Urine 0-2 /HPF (0)
== END 2021-10-10 13:17 | disposition home or self-care (01) ==
LOC: HO.HSH2E 13:16
PROVIDERS: Visit Provider Internal Medicine Medical Oncology
DX: R41.0 Disorientation, unspecified (principal)
CPT/HCPCS: 81001; 81003; 87086

== ENCOUNTER 2021-11-03 11:36 | Outpatient (REF) | payer MEDICARE, BC, SELFPAY ==
[2021-11-03 12:16] LABS: MANUAL DIFF FLAG NO
[2021-11-03 12:19] LABS: Basophils Percent Auto 0.5 % (0-2); Eosinophils Absolute Auto 0.1 X10*3/uL (0.0-0.4); Eosinophils Percent Auto 1.6 % (0-4); Hematocrit 43.4 % (42.0-52.0); Hemoglobin 13.8 g/dl (14.0-18.0); Imm Gran Abs Auto 0.05 X10*3/uL (0.00-0.03); Imm Gran Pct Auto 0.6 % (0.0-0.4); Lymphocytes Absolute Auto 1.8 X10*3/uL (1.2-4.9); Lymphocytes Percent Auto 21.6 % (20-40); Mean Corpuscular HGB Conc 31.8 g/dl (31.0-36.0); Mean Corpuscular Hemoglobin 28.1 pg (27.0-33.0); Mean Corpuscular Volume 88.4 fL (80.0-98.0); Monocytes Absolute Auto 0.6 X10*3/uL (0.1-1.2); Monocytes Percent Auto 7.4 % (2-11); Neutrophils Absolute Auto 5.6 x10*3/uL (2.0-8.3); Neutrophils Percent Auto 68.3 % (45-73); Platelet Count 177 X10*3/uL (160-400); Red Blood Count 4.91 X10*6/uL (4.60-5.80); Red Cell Distribution Width 14.4 % (11.0-16.0); White Blood Count 8.1 X10*3/uL (4.8-10.8)
[2021-11-03 12:42] LABS: Alanine Aminotransferase 19 U/L (0-40); Albumin Level 3.5 g/dL (3.5-5.0); Alkaline Phosphatase 174 U/L (39-117); Amylase 41 U/L (28-100); Anion Gap 14 (12-20); Aspartate Amino Transferase 20 U/L (5-37); Bilirubin Total 0.3 mg/dL (0.0-1.0); Blood Urea Nitrogen 8 mg/dL (9-16); Calcium 8.8 mg/dL (8.4-10.2); Carbon Dioxide 30 mmol/L (22-29); Chloride 101 mmol/L (96-108); Estimated Glomerular Filt Rate > 60; Glucose Random 165 mg/dL (60-115); Potassium 4.1 mmol/L (3.3-5.1); Sodium 141 mmol/L (135-145); Total Protein 6.2 g/dL (6.5-8.0)
[2021-11-03 13:02] LABS: Ferritin 79 ng/mL (20-250); Prostate Specific Antigen 1.53 ng/mL (<0.05-4.0)
[2021-11-03 13:15] LABS: Folate > 20.0 ng/mL (> or = 4.0); Vitamin B12 1386 pg/mL (200-900)
[2021-11-03 13:17] LABS: Erythrocyte Sedimentation Rate 8 MM/HR (0-15)
[2021-11-07 10:53] LABS: Prot Elec - Alpha1 0.3 g/dL (0.2-0.3); Prot Elec - Beta 1 0.4 g/dL (0.4-0.6); Prot Elec - Beta 2 0.3 g/dL (0.2-0.5); Prot Elec - Gamma 0.9 g/dL (0.8-1.7); Prot Elec - Total Protein 5.9 g/dL (6.1-8.1)
== END 2021-11-03 11:37 | disposition home or self-care (01) ==
LOC: HO.HSH2E 11:36
PROVIDERS: Visit Provider Internal Medicine Medical Oncology
DX: Z12.5 Encounter for screening for malignant neoplasm of prostate (principal); R63.4 Abnormal weight loss
CPT/HCPCS: 36415; 80053; 82150; 82378; 82607; 82728; 82746; 84153; 84165; 85025; 85652

== ENCOUNTER 2021-11-13 10:49 | Outpatient (REF) | payer MEDICARE, BC, SELFPAY ==
--- NOTE | ~2021-11-13 | CT_ITS ---
EXAMINATION: CT CHEST, ABDOMEN AND PELVIS WITHOUT CONTRAST CLINICAL INFORMATION: Abnormal weight loss. COMPARISON: CTA chest 09/17/2021 TECHNIQUE: 5 mm thin axial and 3 mm thin sagittal and coronal reconstructed images of chest, abdomen pelvis were obtained without contrast. DLP 1175 mGy-cm. This CT examination was performed using dose optimization technique as appropriate, variously including the following: Automated exposure control Adjustment of MA and/or KV according to patient size(this includes techniques or standardized protocols for targeted exams where dose is matched to indication/reason for exam; extremities or head. Use of iterative reconstruction techniques. FINDINGS: Chest: The lungs are well-expanded and clear of acute pneumonic process. There is minimal subpleural linear density right upper lobe axial image 84/7 likely focal atelectasis. There is compressive atelectasis left lung base from elevated left hemidiaphragm. There are no pulmonary nodules, mass or consolidation. The thyroid lobes are symmetrical and normal. The central trachea and the bronchi are widely patent. Heart size and the great vessels are normal caliber. The mediastinum is shifted to the right secondary to elevated left hemidiaphragm. No abnormal size mediastinal or hilar lymph nodes. There is trace coronary artery calcifications. No pericardial effusion seen. There is a small hiatal hernia. There is no pleural thickening or calcification. The axilla and the chest wall appears unremarkable. There is a compression deformity L1 vertebra with vacuum disc phenomena at T8-T9 and T6-T7 disc levels. Abdomen and pelvis: The liver is normal size, contour and density. No focal lesion seen. There is no intrahepatic ductal dilatation. The gallbladder has been surgically removed. The spleen, pancreas and bilateral adrenal glands are unremarkable. Both kidneys are normal size and shape for patient's age. There is a large complex exophytic cyst upper pole left kidney measuring 10 cm in maximum length and 8 cm wide. There is a calcified stranding along the left upper wall. No radiopaque renal calculi or hydronephrosis seen. There is mild nonspecific perinephric stranding. The abdominal aorta is normal caliber. No retrocrural lymph nodes or mass seen. Oral contrast opacified colon and small bowel loops are unremarkable. There is no free air or free fluid. Scattered colonic diverticulosis without diverticulitis. The abdominal wall appears unremarkable. Imaging to the pelvis reveals mild prostate enlargement. The urinary bladder is unremarkable. No abnormal pelvic or inguinal lymph nodes. There is small to moderate-sized left inguinal hernia containing fat and soft tissue density. Bone windows reveal compression fracture L1 vertebra of indeterminate age. There are [address]/CT abdomen pelvis wo con IMPRESSION: Elevated left hemidiaphragm with compressive atelectasis left lung base and minimal focal atelectatic changes right upper lobe posterior segment. No pulmonary nodule, mass or abnormal mediastinal lymphadenopathy. There is no acute process seen in the abdomen except for a complex cyst upper pole left kidney. Mild constipation with scattered colonic diverticulosis but no diverticulitis. Left inguinal hernia containing fat and a small soft tissue density. L1 compression fracture of indeterminate age. There are 6 lumbar vertebrae. L1 vertebra was not well visualized on the previous exam 09/17/2021.
[2021-11-13] MEDS: Barium Sulfate Oral (Berry) 450 ML ORAL.SUSP 900 ML PO (13:50)
== END 2021-11-13 10:50 | disposition home or self-care (01) ==
LOC: HO.CT 10:49
PROVIDERS: Visit Provider Internal Medicine Medical Oncology
DX: R63.4 Abnormal weight loss (principal)
CPT/HCPCS: 71250; 74176

== ENCOUNTER 2022-02-03 12:59 | Outpatient (REF) | payer MEDICARE, BC, SELFPAY | END 2022-02-03 13:00 | disposition home or self-care (01) | LOC: HO.HSH2E 12:59 | PROVIDERS: Visit Provider Internal Medicine Medical Oncology | DX: R60.9 Edema, unspecified (principal); H57.89 Other specified disorders of eye and adnexa | CPT/HCPCS: 87070; 87077; 87186; 87205 ==

== ENCOUNTER 2022-03-18 19:16 | Outpatient (REF) | payer MEDICARE, BC, SELFPAY | END 2022-03-18 19:17 | disposition home or self-care (01) | LOC: HO.HSH2E 19:16 | PROVIDERS: Visit Provider Internal Medicine Medical Oncology | DX: R30.0 Dysuria (principal); R45.1 Restlessness and agitation | CPT/HCPCS: 87086 ==

== ENCOUNTER 2022-03-24 09:37 | Outpatient (REF) | payer MEDICARE, BC, SELFPAY ==
[2022-03-24 14:02] LABS: MANUAL DIFF FLAG NO
[2022-03-24 14:11] LABS: Basophils Percent Auto 0.3 % (0-2); Eosinophils Absolute Auto 0.3 X10*3/uL (0.0-0.4); Eosinophils Percent Auto 3.5 % (0-4); Hematocrit 41.8 % (42.0-52.0); Imm Gran Abs Auto 0.02 X10*3/uL (0.00-0.03); Imm Gran Pct Auto 0.2 % (0.0-0.4); Lymphocytes Absolute Auto 2.2 X10*3/uL (1.2-4.9); Lymphocytes Percent Auto 24.9 % (20-40); Mean Corpuscular HGB Conc 31.1 g/dl (31.0-36.0); Mean Corpuscular Volume 90.1 fL (80.0-98.0); Mean Platelet Volume 12.1 fL (9.4-12.4); Monocytes Absolute Auto 0.8 X10*3/uL (0.1-1.2); Neutrophils Absolute Auto 5.6 x10*3/uL (2.0-8.3); Neutrophils Percent Auto 62.1 % (45-73); Platelet Count 153 X10*3/uL (160-400); Red Blood Count 4.64 X10*6/uL (4.60-5.80); Red Cell Distribution Width 14.4 % (11.0-16.0)
[2022-03-24 14:45] LABS: Erythrocyte Sedimentation Rate 3 MM/HR (0-15)
[2022-03-24 15:43] LABS: Alanine Aminotransferase 17 U/L (0-40); Albumin Level 3.5 g/dL (3.5-5.0); Alkaline Phosphatase 131 U/L (39-117); Anion Gap 10 (12-20); Aspartate Amino Transferase 20 U/L (5-37); Bilirubin Total 0.4 mg/dL (0.0-1.0); Blood Urea Nitrogen 12 mg/dL (9-16); Calcium 8.7 mg/dL (8.4-10.2); Carbon Dioxide 36 mmol/L (22-29); Chloride 100 mmol/L (96-108); Estimated Glomerular Filt Rate > 60; Glucose Random 84 mg/dL (60-115); Potassium 4.3 mmol/L (3.3-5.1); Sodium 142 mmol/L (135-145); T4 Thyroxine 5.5 ug/dL (4.5-12.0); Thyroid Stimulating Hormone 0.89 uIU/mL (0.32-4.0)
[2022-03-24 15:56] LABS: Vitamin B12 1869 pg/mL (200-900)
== END 2022-03-24 09:38 | disposition home or self-care (01) ==
LOC: HO.HSH2E 09:37
PROVIDERS: Visit Provider Internal Medicine Medical Oncology
DX: E11.9 Type 2 diabetes mellitus without complications (principal); I10 Essential (primary) hypertension; R46.89 Other symptoms and signs involving appearance and behavior
CPT/HCPCS: 36415; 80053; 82607; 84436; 84443; 85025; 85652

== ENCOUNTER 2022-03-25 11:19 | Outpatient (REF) | payer MEDICARE, BC, SELFPAY ==
[2022-03-25 13:02] LABS: Appearance Urine Clear; Color Urine Yellow; Glucose Urine UA Negative (Negative); Leukocyte Esterase Urine Moderate (2+) (Negative); Nitrite Urine Negative (Negative); PH 5.5 (5.0-9.0); Specific Gravity - Urine <= 1.005 (1.005-1.025); UMIC TRIGGER UACC YES; Urine Blood Trace (Negative); Urine Ketones Negative (Negative); Urine Protein Negative (Neg-Trace)
[2022-03-25 13:32] LABS: Bacteria Urine None Seen (None Seen); Hyaline Casts Urine 0-2 /LPF (0-2); RBC Urine 0-2 /HPF (0-2); Squamous Epithelial Cell Urine 0-2 /HPF (0-2); UACC Culture Trigger YES
== END 2022-03-25 11:20 | disposition home or self-care (01) ==
LOC: HO.HSH2E 11:19
PROVIDERS: Visit Provider Internal Medicine Medical Oncology
DX: Z13.89 Encounter for screening for other disorder (principal)
CPT/HCPCS: 81001; 81003; 87086

== ENCOUNTER 2022-03-25 11:48 | Emergency (ER) | payer MEDICARE, BC, SELFPAY ==
--- NOTE | ~2022-03-25 | CT_ITS ---
CT HEAD WITHOUT IV CONTRAST CT CERVICAL SPINE WITHOUT IV CONTRAST INDICATION: Unwitnessed fall. COMPARISON: None available. TECHNIQUE: Multidetector CT acquisitions of the head and cervical spine were obtained without IV contrast. Multiplanar reformats were acquired and utilized for image interpretation. This CT examination was performed using dose optimization techniques as appropriate, variously including the following: *Automated exposure control *Adjustment of mA and/or kV according to patient size (this includes techniques or standardized protocols for targeted exams where dose is matched to indication/reason for exam; i.e. extremities or head) *Use of iterative reconstruction technique FINDINGS: HEAD: There is no intracranial hemorrhage, hydrocephalus, extra-axial surface collection, midline shift, or other herniation pattern. Weber to white matter differentiation is diffusely maintained without evidence of an evolved acute territorial infarct. The basilar cisterns are preserved. No significant soft tissue abnormality. No acute osseous abnormality. The paranasal sinuses and the mastoid air cells are well aerated. CERVICAL SPINE: Straightening of the cervical lordosis. There is mild anterior subluxation of C7 on T1. Hypertrophic degenerative changes involving the atlantodental interval. Calcified pannus posterior to the dens. Solid interbody arthrodesis at C5-C7. Severe disc volume loss at C4-C5. There is multilevel hypertrophic facet arthropathy. There are no acute fractures and there are no acute subluxations. No prevertebral soft tissue swelling. Imaged upper lungs are clear. CT/CT head/brain wo IV con IMPRESSION: - No acute intracranial findings. - No acute osseous findings within the cervical spine. Multilevel cervical spondylosis.
--- NOTE | ~2022-03-25 | XR_ITS ---
EXAMINATION: XR CHEST CLINICAL INFORMATION: Unwitnessed fall. Confusion. COMPARISON: Previous chest CT most recent October 2021 TECHNIQUE: Frontal view of the chest was obtained. FINDINGS: The lung volumes are low. There is elevation of the left hemidiaphragm. This is similar to previous chest CT. The cardiac and mediastinal contours are stable. There may be atelectasis at the left lung base adjacent to the elevated left hemidiaphragm. The lungs are otherwise clear. No pleural effusion or pneumothorax. Degenerative changes of the spine. XR/XR chest 1V IMPRESSION: No evidence for acute disease in the chest. Low lung volumes and elevated left hemidiaphragm similar to prior chest CT scans.
--- NOTE | ~2022-03-25 | CT_ITS ---
CT HEAD WITHOUT IV CONTRAST CT CERVICAL SPINE WITHOUT IV CONTRAST INDICATION: Unwitnessed fall. COMPARISON: None available. TECHNIQUE: Multidetector CT acquisitions of the head and cervical spine were obtained without IV contrast. Multiplanar reformats were acquired and utilized for image interpretation. This CT examination was performed using dose optimization techniques as appropriate, variously including the following: *Automated exposure control *Adjustment of mA and/or kV according to patient size (this includes techniques or standardized protocols for targeted exams where dose is matched to indication/reason for exam; i.e. extremities or head) *Use of iterative reconstruction technique FINDINGS: HEAD: There is no intracranial hemorrhage, hydrocephalus, extra-axial surface collection, midline shift, or other herniation pattern. Weber to white matter differentiation is diffusely maintained without evidence of an evolved acute territorial infarct. The basilar cisterns are preserved. No significant soft tissue abnormality. No acute osseous abnormality. The paranasal sinuses and the mastoid air cells are well aerated. CERVICAL SPINE: Straightening of the cervical lordosis. There is mild anterior subluxation of C7 on T1. Hypertrophic degenerative changes involving the atlantodental interval. Calcified pannus posterior to the dens. Solid interbody arthrodesis at C5-C7. Severe disc volume loss at C4-C5. There is multilevel hypertrophic facet arthropathy. There are no acute fractures and there are no acute subluxations. No prevertebral soft tissue swelling. Imaged upper lungs are clear. CT/CT cervical spine wo IV con IMPRESSION: - No acute intracranial findings. - No acute osseous findings within the cervical spine. Multilevel cervical spondylosis.
[2022-03-25 11:56] VITALS: BP 122/71; PULSE 85; RESP 18; O2SAT 90; BMI 28.5
--- NOTE | 2022-03-25 11:57 | ED_ITS ---
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 Patient was found on the ground next to bed. Facility also reports increasing confusion and delusions over the past couple days, worried about UTI. At baseline patient confused however conversational. Patient denies symptoms at present, angered he is here. Facility denies recent illness, fever, cough. Patient takes ASA Onset (ago): unknown Related Data Home Medications Medication Instructions Recorded Confirmed aspirin 81 mg tablet,delayed 81 mg PO DAILY 09/17/21 03/25/22 release atorvastatin 10 mg tablet 10 mg PO DAILY 09/17/21 03/25/22 carvedilol 12.5 mg tablet 12.5 mg PO BID 09/17/21 03/25/22 cholecalciferol (vitamin D3) 25 50 mcg PO DAILY 09/17/21 03/25/22 mcg (1,000 unit) tablet cyanocobalamin (vitamin B-12) 500 1,000 mcg PO DAILY 09/17/21 03/25/22 mcg tablet donepezil 10 mg tablet 10 mg PO DAILY 09/17/21 03/25/22 folic acid 1 mg tablet 1 mg PO Q2D@1000 09/17/21 03/25/22 melatonin 3 mg tablet 3 mg PO BEDTIME 09/17/21 03/25/22 memantine 5 mg tablet 5 mg PO BID 09/17/21 03/25/22 paroxetine HCl 40 mg tablet 40 mg PO DAILY 09/17/21 03/25/22 tiotropium bromide 18 mcg capsule 1 cap inhalation DAILY 09/17/21 03/25/22 with inhalation device (Spiriva with HandiHaler) trazodone 100 mg tablet 100 mg PO BEDTIME 09/17/21 03/25/22 vit C 250 mg-vit E 90 mg-zinc 40 1 tab PO BID 09/17/21 03/25/22 mg-copper 1 [id number] capsule (PreserVision AREDS-2) dronabinol 2.5 mg capsule 2.5 mg PO BID 03/25/22 03/25/22 levalbuterol tartrate 45 2 inh inhalation TID 03/25/22 03/25/22 mcg/actuation aerosol inhaler (Xopenex HFA) lorazepam 0.5 mg tablet (Ativan) 0.5 mg PO Q6H PRN Agitation 03/25/22 03/25/22 mirtazapine 15 mg tablet 15 mg PO BEDTIME 03/25/22 03/25/22 quetiapine 50 mg tablet 50 mg PO TID@0900,1200,1700 03/25/22 03/25/22 Previous Rx's Medication Instructions Recorded prednisone 20 mg tablet 40 mg PO DAILY 5 days #10 tabs 03/25/22 Allergies Allergy/AdvReac Type Severity Reaction Status Date / Time enalapril Allergy Severe Angioedema Verified 09/18/21 07:23 capsaicin [From Zostrix] Allergy Unknown Unknown Verified 09/17/21 14:53 prochlorperazine Allergy Unknown Unknown Verified 09/17/21 14:53 [From Compazine] erythromycin base Allergy Unknown Verified 09/17/21 14:53 Review of Systems Review of Systems: ROS limited due to patients baseline dementia Yes all other systems are reviewed and are negative Constitutional: Constitutional: Reports as per [facility] Past Medical History Attestation statement: The following information was validated with the patient. Medical History Anemia Angioedema Anxiety Dementia Depression Diabetes Hyperlipidemia Hypertension Recurrent falls Restrictive lung disease Family History Family History Other No family history of coronary artery disease Social History Social History Alcohol intake: never Patient Tobacco Use Status: Former Tobacco user Quit Date: remote history of cigar use Advance Directives: Yes Advance Directives on File: Yes Advance Directives Date on File: 09/17/21 Physical Exam ED Vital Signs: Vital Signs - 24 hr 03/25/22 11:56 03/25/22 15:40 03/25/22 16:34 Pulse Rate 85 Respiratory Rate 18 18 Blood Pressure 122/71 Pulse Oximetry 90 L 94 Oxygen Delivery Method Room Air BMI result Body Mass Index 28.5 Const Other: A&Ox1 General: no acute distress Orientation/consciousness: oriented to place HENMT Head: Yes normal to inspection and Yes atraumatic Ears: hearing grossly normal bilaterally General nose exam: Normal external nose present Face and sinus: Yes normal facial exam Throat: Yes posterior oropharynx normal Eyes General: appearance normal, both eyes and all related structures Pupils: Equal, round and reactive pupils present EOM: EOMs intact bilaterally Neck Neck: Yes normal visual inspection and Yes no meningeal signs Resp Effort & Inspection: normal respiratory effort and no respiratory distress Auscultation: wheezes expiratory wheezes and throughout Cardio Rate: regular rate Heart sounds: S1 normal heart sound present and S2 normal heart sound present GI Inspection: Yes normal to inspection Palpation (GI): Soft to palpation, nontender, no guarding and not rigid Skin Other: + skin tear to left elbow, bleeding controlled Rashes: no rashes Neuro General: oriented to place, tone normal, moves all extremities, no meningeal signs, no focal motor deficits and CN's II-XI intact bilaterally Cranial nerves: Yes Equal, round and reactive pupils present Motor exam (neuro): 5/5 motor strength present throughout Extrem Other: 1+ bilateral pedal edema General: Yes normal to inspection Course Course Course Narrative: Patient currently refusing all labs/imaging. Spoke with patient's son, HCP who makes decisions for him, Louis, who is in agreement to proceed however necessary to obtain needed workup CT head/brain wo IV con/CT cervical spine wo IV con IMPRESSION: - No acute intracranial findings. ? - No acute osseous findings within the cervical spine. Multilevel cervical spondylosis. XR chest 1V IMPRESSION: No evidence for acute disease in the chest. Low lung volumes and elevated left hemidiaphragm similar to prior chest CT scans. ? > took multiple people and IM Versed to obtain labs on patient. Will switch IV Solu-Medrol to IM -no leukocytosis. Labs reassuring. 1630--on re-evaluation patient's lungs CTA, sat 94% on RA after DuoNeb, talking in complete sentences. Plan to discharge ho me back to [facility] -UA not infected. COVID-19/influenza/RSV negative Medications Administered Discontinued Medications Generic Name Dose Route Start Last Admin Trade Name Freq PRN Reason Stop Dose Admin Albuterol Sulfate 2.5 mg/ 5 mg 03/25/22 15:02 03/25/22 15:37 Albuterol Sulfate 2.5 mg INHALE 03/25/22 15:03 5 mg ONCE ONE Administration Albuterol/Ipratropium 3 ml 03/25/22 12:22 03/25/22 14:33 Albuterol/Iprat 2.5/0.5mg 3 Ml Ampul.Neb INHALE 03/25/22 12:23 Not Given ONCE ONE Albuterol/Ipratropium 3 ml 03/25/22 15:02 03/25/22 15:37 Albuterol/Iprat 2.5/0.5mg 3 Ml Ampul.Neb INHALE 03/25/22 15:03 3 ml ONCE ONE Administration Diphenhydramine HCl 50 mg 03/25/22 14:02 03/25/22 17:02 Diphenhydramine Hcl 50 Mg/Ml Vial IM 03/25/22 14:03 Not Given ONCE ONE Methylprednisolone Sodium Succinate 60 mg 03/25/22 15:16 03/25/22 15:52 Methylprednisolone Sod Succ 125 Mg/2 Ml Vial IM 03/25/22 15:17 60 mg ONCE ONE Administration Midazolam HCl 1 mg 03/25/22 14:02 03/25/22 17:02 Midazolam Hcl/Pf 2 Mg/2 Ml Vial IM 03/25/22 14:03 Not Given ONCE ONE Olanzapine 10 mg 03/25/22 12:46 03/25/22 14:03 Olanzapine 10 Mg Vial IM 03/25/22 12:47 10 mg STAT STA Administration Medical Decision Making Medical Decision Making MDM Narrative: 82-year-old male with a past medical history of anemia, anxiety, dementia, depression, diabetes, HLD, HTN, restrictive lung disease, recurrent falls, presenting to the ED via EMS from [facility] 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 On exam satting 92% on RA, diffuse expiratory wheeze noted, abdomen soft/nontender, 1+ bilateral pedal edema. Concern for ICH/fracture vs metabolic encephalopathy vs COPD exacerbation vs progressive dementia. Lower suspicion for ACS/PE or CHF Plan: EKG, labs, UA, CXR, head/C-spine CT, DuoNebs, IV Solu-Medrol, anticipate admission Differential Diagnosis Differential Diagnoses: The differential diagnosis associated with the presentation includes As above Admission/Observation Consideration of admission/observation: Escalation of care including admission/observation considered Lab Data MDM Lab Attestation statement: I reviewed the patient's lab results. Result Diagrams: 03/25/22 14:50 03/25/22 14:50 Labs: Lab Results 03/25/22 03/25/22 03/25/22 Range/Units 13:42 14:49 14:49 WBC (4.8-10.8) X10*3/uL RBC (4.60-5.80) X10*6/uL Hgb (14.0-18.0) g/dl Hct (42.0-52.0) % MCV (80.0-98.0) fL MCH (27.0-33.0) pg MCHC (31.0-36.0) g/dl RDW (11.0-16.0) % Plt Count (160-400) X10*3/uL MPV (9.4-12.4) fL Immature Gran % (Auto) (0.0-0.4) % Neut % (Auto) (45-73) % Lymph % (Auto) (20-40) % Carlisle % (Auto) (2-11) % Eos % (Auto) (0-4) % Baso % (Auto) (0-2) % Lymph # (Auto) (1.2-4.9) X10*3/uL [place]isle # (Auto) (0.1-1.2) X10*3/uL Eos # (Auto) (0.0-0.4) X10*3/uL Baso # (Auto) (0.0-0.2) X10*3/uL Abs Immat Gran (auto) (0.00-0.03) X10*3/uL Absolute Neuts (auto) (2.0-8.3) x10*3/uL Absolute Nucleated RBC (0.0-0.012) X10*3/uL Nucleated RBC % (auto) (0.0-0.2) /100WBC PT (10.0-13.1) SEC INR (0.9-1.1) Sodium (135-145) mmol/L Potassium (3.3-5.1) mmol/L Chloride (96-108) mmol/L Carbon Dioxide (22-29) mmol/L Anion Gap (12-20) BUN (9-16) mg/dL Creatinine (0.5-1.4) mg/dL Estim Creat Clear Calc Estimated GFR Random Glucose (60-115) mg/dL Calcium (8.4-10.2) mg/dL Magnesium (1.6-2.6) mg/dL Total Bilirubin (0.0-1.0) mg/dL Direct Bilirubin (0.0-0.5) mg/dL AST (5-37) U/L ALT (0-40) U/L Alkaline Phosphatase (39-117) U/L Ammonia (13-55) umol/L Total Creatine Kinase Troponin I High Sens < 3.5 (<3.5-35.0) ng/L B-Natriuretic Peptide 30 (<100) pg/mL Total Protein (6.5-8.0) g/dL Albumin (3.5-5.0) g/dL Urine Color Yellow Urine Appearance Clear Urine pH 5.5 (5.0-9.0) Ur Specific [place] 1.015 (1.005-1.025) Urine Protein Negative (Neg-Trace) mg/dL Urine Glucose (UA) Negative (Negative) mg/dL Urine Ketones Negative (Negative) mg/dL Urine Blood Negative (Negative) Urine Nitrite Negative (Negative) Ur Leukocyte Esterase Trace H (Negative) Urine RBC 0-2 (0-2) /HPF Urine WBC 0-5 (0-5) /HPF Ur Squamous Epith Cells 0-2 (0-2) /HPF Urine Bacteria None Seen (None Seen) Hyaline Casts 0-2 (0-2) /LPF Influenza Type A (PCR) (Negative) Influenza Type B (PCR) (Negative) RSV RNA Qual (PCR) (Negative) SARS-CoV-2 RNA (RT-PCR) (Negative) 03/25/22 03/25/22 03/25/22 Range/Units 14:49 14:49 14:50 WBC (4.8-10.8) X10*3/uL RBC (4.60-5.80) X10*6/uL Hgb (14.0-18.0) g/dl Hct (42.0-52.0) % MCV (80.0-98.0) fL MCH (27.0-33.0) pg MCHC (31.0-36.0) g/dl RDW (11.0-16.0) % Plt Count (160-400) X10*3/uL MPV (9.4-12.4) fL Immature Gran % (Auto) (0.0-0.4) % Neut % (Auto) (45-73) % Lymph % (Auto) (20-40) % Carlisle % (Auto) (2-11) % Eos % (Auto) (0-4) % Baso % (Auto) (0-2) % Lymph # (Auto) (1.2-4.9) X10*3/uL Carlisle # (Auto) (0.1-1.2) X10*3/uL Eos # (Auto) (0.0-0.4) X10*3/uL Baso # (Auto) (0.0-0.2) X10*3/uL Abs Immat Gran (auto) (0.00-0.03) X10*3/uL Absolute Neuts (auto) (2.0-8.3) x10*3/uL Absolute Nucleated RBC (0.0-0.012) X10*3/uL Nucleated RBC % (auto) (0.0-0.2) /100WBC PT (10.0-13.1) SEC INR (0.9-1.1) Sodium (135-145) mmol/L Potassium (3.3-5.1) mmol/L Chloride (96-108) mmol/L Carbon Dioxide (22-29) mmol/L Anion Gap (12-20) BUN (9-16) mg/dL Creatinine (0.5-1.4) mg/dL Estim Creat Clear Calc Estimated GFR Random Glucose (60-115) mg/dL Calcium (8.4-10.2) mg/dL Magnesium (1.6-2.6) mg/dL Total Bilirubin (0.0-1.0) mg/dL Direct Bilirubin (0.0-0.5) mg/dL AST (5-37) U/L ALT (0-40) U/L Alkaline Phosphatase (39-117) U/L Ammonia 23 (13-55) umol/L Total Creatine Kinase Cancelled Troponin I High Sens (<3.5-35.0) ng/L B-Natriuretic Peptide (<100) pg/mL Total Protein (6.5-8.0) g/dL Albumin (3.5-5.0) g/dL Urine Color Urine Appearance Urine pH (5.0-9.0) Ur Specific [place] (1.005-1.025) Urine Protein (Neg-Trace) mg/dL Urine Glucose (UA) (Negative) mg/dL Urine Ketones (Negative) mg/dL Urine Blood (Negative) Urine Nitrite (Negative) Ur Leukocyte Esterase (Negative) Urine RBC (0-2) /HPF Urine WBC (0-5) /HPF Ur Squamous Epith Cells (0-2) /HPF Urine Bacteria (None Seen) Hyaline Casts (0-2) /LPF Influenza Type A (PCR) NEGATIVE (Negative) Influenza Type B (PCR) NEGATIVE (Negative) RSV RNA Qual (PCR) NEGATIVE (Negative) SARS-CoV-2 RNA (RT-PCR) NEGATIVE (Negative) 03/25/22 03/25/22 03/25/22 Range/Units 14:50 14:50 14:50 WBC 10.4 (4.8-10.8) X10*3/uL RBC 4.73 (4.60-5.80) X10*6/uL Hgb 13.4 L (14.0-18.0) g/dl Hct 42.9 (42.0-52.0) % MCV 90.7 (80.0-98.0) fL MCH 28.3 (27.0-33.0) pg MCHC 31.2 (31.0-36.0) g/dl RDW 14.3 (11.0-16.0) % Plt Count 158 L (160-400) X10*3/uL MPV 11.7 (9.4-12.4) fL Immature Gran % (Auto) 0.3 (0.0-0.4) % Neut % (Auto) 71.3 (45-73) % Lymph % (Auto) 17.5 L (20-40) % Carlisle % (Auto) 8.1 (2-11) % Eos % (Auto) 2.4 (0-4) % Baso % (Auto) 0.4 (0-2) % Lymph # (Auto) 1.8 (1.2-4.9) X10*3/uL Carlisle # (Auto) 0.8 (0.1-1.2) X10*3/uL Eos # (Auto) 0.3 (0.0-0.4) X10*3/uL Baso # (Auto) 0.0 (0.0-0.2) X10*3/uL Abs Immat Gran (auto) 0.03 (0.00-0.03) X10*3/uL Absolute Neuts (auto) 7.4 (2.0-8.3) x10*3/uL Absolute Nucleated RBC 0.000 (0.0-0.012) X10*3/uL Nucleated RBC % (auto) 0.0 (0.0-0.2) /100WBC PT 14.1 H (10.0-13.1) SEC INR 1.2 H (0.9-1.1) Sodium 141 (135-145) mmol/L Potassium 4.3 (3.3-5.1) mmol/L Chloride 99 (96-108) mmol/L Carbon Dioxide 35 H (22-29) mmol/L Anion Gap 11 L (12-20) BUN 11 (9-16) mg/dL Creatinine 0.97 (0.5-1.4) mg/dL Estim Creat Clear Calc 76.9 Estimated GFR > 60 Random Glucose 95 (60-115) mg/dL Calcium 8.9 (8.4-10.2) mg/dL Magnesium 1.6 (1.6-2.6) mg/dL Total Bilirubin 0.4 (0.0-1.0) mg/dL Direct Bilirubin 0.2 (0.0-0.5) mg/dL AST 21 (5-37) U/L ALT 18 (0-40) U/L Alkaline Phosphatase 133 H (39-117) U/L Ammonia (13-55) umol/L Total Creatine Kinase 55 Troponin I High Sens (<3.5-35.0) ng/L B-Natriuretic Peptide (<100) pg/mL Total Protein 6.2 L (6.5-8.0) g/dL Albumin 3.5 (3.5-5.0) g/dL Urine Color Urine Appearance Urine pH (5.0-9.0) Ur Specific [place] (1.005-1.025) Urine Protein (Neg-Trace) mg/dL Urine Glucose (UA) (Negative) mg/dL Urine Ketones (Negative) mg/dL Urine Blood (Negative) Urine Nitrite (Negative) Ur Leukocyte Esterase (Negative) Urine RBC (0-2) /HPF Urine WBC (0-5) /HPF Ur Squamous Epith Cells (0-2) /HPF Urine Bacteria (None Seen) Hyaline Casts (0-2) /LPF Influenza Type A (PCR) (Negative) Influenza Type B (PCR) (Negative) RSV RNA Qual (PCR) (Negative) SARS-CoV-2 RNA (RT-PCR) (Negative) Discharge Plan Discharge Clinical Impression: COPD exacerbation, Fall, Skin tear of left upper extremity Patient Disposition: er [facility] Transfer Details[facility] Instructions: COPD (Chronic Obstructive Pulmonary Disease) (ED), Fall Prevention (ED) Additional Instructions: Your imaging studies were reassuring today. Your lung sounds were very wheezy, your likely having a COPD exacerbation, continue DuoNebs/inhalers at home additionally should be taking prednisone 40 mg daily for the next 5 days If symptoms persist or worsen return to the emergency department. Please have close follow-up with her doctors Prescriptions: New prednisone 20 mg tablet 40 mg PO DAILY 5 Days Qty: 10 0RF No Action aspirin 81 mg Tablet,Delayed Release (Dr/Ec) 81 mg PO DAILY atorvastatin 10 mg Tablet 10 mg PO DAILY carvedilol 12.5 mg Tablet 12.5 mg PO BID Rx Instructions: must administer with a meal/food cholecalciferol (vitamin D3) 25 mcg (1,000 unit) Tablet 50 mcg PO DAILY cyanocobalamin (vitamin B-12) 500 mcg Tablet 1,000 mcg PO DAILY donepezil 10 mg Tablet 10 mg PO DAILY folic acid 1 mg Tablet 1 mg PO Q2D@1000 melatonin 3 mg Tablet 3 mg PO BEDTIME memantine 5 mg Tablet 5 mg PO BID paroxetine HCl 40 mg Tablet 40 mg PO DAILY PreserVision AREDS-2 250-90-40-1 mg Capsule 1 tab PO BID Spiriva with HandiHaler 18 mcg Capsule, W/Inhalation Device 1 cap INHALATION DAILY trazodone 100 mg Tablet 100 mg PO BEDTIME dronabinol 2.5 mg Capsule 2.5 mg PO BID Rx Instructions: administer before lunch and evening meal/dinner lorazepam [Ativan] 0.5 mg Tablet 0.5 mg PO Q6H PRN (Reason: Agitation) mirtazapine 15 mg Tablet 15 mg PO BEDTIME levalbuterol tartrate [Xopenex HFA] 45 mcg/actuation Hfa Aerosol Inhaler 2 inh INHALATION TID quetiapine 50 mg Tablet 50 mg PO TID@0900,1200,1700 Referrals: Enio Mcgraw MD [Primary Care Provider] - Interventions: ED Discharge Assessment Last Done: 03/25/22 17:32
--- NOTE | 2022-03-25 12:59 | MHC.EDTECH ---
Pt refused EKG, will try again when returns from CT Scan.
[2022-03-25 13:54] LABS: Appearance Urine Clear; Color Urine Yellow; Glucose Urine UA Negative (Negative); Leukocyte Esterase Urine Trace (Negative); Nitrite Urine Negative (Negative); PH 5.5 (5.0-9.0); Specific Gravity - Urine 1.015 (1.005-1.025); UMIC TRIGGER UACC YES; Urine Blood Negative (Negative); Urine Ketones Negative (Negative); Urine Protein Negative (Neg-Trace)
[2022-03-25 13:59] LABS: Bacteria Urine None Seen (None Seen); Hyaline Casts Urine 0-2 /LPF (0-2); RBC Urine 0-2 /HPF (0-2); Squamous Epithelial Cell Urine 0-2 /HPF (0-2); WBC Urine 0-5 /HPF (0-5)
[2022-03-25] MEDS: OLANZapine 10 MG VIAL IM (14:03)
[2022-03-25 15:18] LABS: MANUAL DIFF FLAG NO
[2022-03-25 15:19] LABS: Basophils Percent Auto 0.4 % (0-2); Eosinophils Absolute Auto 0.3 X10*3/uL (0.0-0.4); Eosinophils Percent Auto 2.4 % (0-4); Hematocrit 42.9 % (42.0-52.0); Hemoglobin 13.4 g/dl (14.0-18.0); Imm Gran Abs Auto 0.03 X10*3/uL (0.00-0.03); Imm Gran Pct Auto 0.3 % (0.0-0.4); Lymphocytes Absolute Auto 1.8 X10*3/uL (1.2-4.9); Lymphocytes Percent Auto 17.5 % (20-40); Mean Corpuscular HGB Conc 31.2 g/dl (31.0-36.0); Mean Corpuscular Hemoglobin 28.3 pg (27.0-33.0); Mean Corpuscular Volume 90.7 fL (80.0-98.0); Mean Platelet Volume 11.7 fL (9.4-12.4); Monocytes Absolute Auto 0.8 X10*3/uL (0.1-1.2); Monocytes Percent Auto 8.1 % (2-11); Neutrophils Absolute Auto 7.4 x10*3/uL (2.0-8.3); Neutrophils Percent Auto 71.3 % (45-73); Platelet Count 158 X10*3/uL (160-400); Red Blood Count 4.73 X10*6/uL (4.60-5.80); Red Cell Distribution Width 14.3 % (11.0-16.0); White Blood Count 10.4 X10*3/uL (4.8-10.8)
[2022-03-25 15:25] LABS: INTERNATIONAL NORM RATIO 1.2 (0.9-1.1); Prothrombin Time 14.1 SEC (10.0-13.1)
[2022-03-25 15:30] LABS: Ammonia 23 umol/L (13-55)
--- NOTE | 2022-03-25 15:30 | PHA.MEDREC ---
Pharmacy Consult ? Medication Reconciliation Pharmacy has completed the medication reconciliation.
[2022-03-25] MEDS: Albuterol Sulfate 2.5 MG, Albuterol Sulfate (0.083%) 2.5 MG 5 MG INHALE (15:37)
[2022-03-25] MEDS: Albuterol/Iprat 2.5/0.5MG 3 ML AMPUL.NEB INHALE (15:37)
[2022-03-25 15:40] VITALS: RESP 18; O2SAT 93
[2022-03-25 15:42] LABS: Alanine Aminotransferase 18 U/L (0-40); Albumin Level 3.5 g/dL (3.5-5.0); Alkaline Phosphatase 133 U/L (39-117); Anion Gap 11 (12-20); Aspartate Amino Transferase 21 U/L (5-37); Bilirubin Direct 0.2 mg/dL (0.0-0.5); Bilirubin Total 0.4 mg/dL (0.0-1.0); Blood Urea Nitrogen 11 mg/dL (9-16); Calcium 8.9 mg/dL (8.4-10.2); Carbon Dioxide 35 mmol/L (22-29); Chloride 99 mmol/L (96-108); Creatinine Clr Calc Pharmacy 76.9; Estimated Glomerular Filt Rate > 60; Glucose Random 95 mg/dL (60-115); Magnesium 1.6 mg/dL (1.6-2.6); Potassium 4.3 mmol/L (3.3-5.1); Sodium 141 mmol/L (135-145); Total Protein 6.2 g/dL (6.5-8.0)
[2022-03-25 15:42] LABS: B Type Natriuretic Peptide 30 pg/mL (<100)
[2022-03-25 15:45] LABS: Troponin-I High Sensitivity < 3.5 ng/L (<3.5-35.0)
[2022-03-25] MEDS: methylPREDNISolone Sod Succ 125 MG/2 ML VIAL 60 MG IM (15:52)
[2022-03-25 15:58] LABS: Influenza A PCR NEGATIVE (Negative); Influenza B PCR NEGATIVE (Negative); Resp Syncy Virus RNA Qual PCR NEGATIVE (Negative); SARS COV2 PCR INHOUSE NEGATIVE (Negative)
[2022-03-25 16:34] VITALS: O2SAT 94
== END 2022-03-25 19:00 | disposition skilled nursing facility (03) ==
PROVIDERS: Physician Assistant; Emergency Provider Student in an Organized Health Care Education/Training Program; PCP Internal Medicine Medical Oncology
DX: S41.112A Laceration without foreign body of left upper arm, initial encounter (principal); J44.1 Chronic obstructive pulmonary disease with (acute) exacerbation; M54.2 Cervicalgia; R51.9 Headache, unspecified; R06.02 Shortness of breath; W01.0XXA Fall on same level from slipping, tripping and stumbling without subsequent striking against object, initial encounter; Y93.9 Activity, unspecified; Y92.9 Unspecified place or not applicable; Y99.9 Unspecified external cause status; Z20.822 Contact with and (suspected) exposure to COVID-19; Z79.899 Other long term (current) drug therapy
CPT/HCPCS: 0241U; 36415; 70450; 71045; 72125; 80048; 80076; 81001; 82140; 82550; 83735; 83880; 84484; 85025; 85610; 87086; 94640; 96372; 99283; 99284; J2930

== ENCOUNTER 2022-06-18 07:06 | Outpatient (REF) | payer MEDICARE, BC, SELFPAY ==
[2022-06-18 08:51] LABS: MANUAL DIFF FLAG NO
[2022-06-18 08:58] LABS: Basophils Absolute Auto 0.1 X10*3/uL (0.0-0.2); Eosinophils Absolute Auto 0.5 X10*3/uL (0.0-0.4); Hematocrit 35.2 % (42.0-52.0); Hemoglobin 11.4 g/dl (14.0-18.0); Imm Gran Abs Auto 0.06 X10*3/uL (0.00-0.03); Imm Gran Pct Auto 0.7 % (0.0-0.4); Lymphocytes Absolute Auto 1.2 X10*3/uL (1.2-4.9); Mean Corpuscular HGB Conc 32.4 g/dl (31.0-36.0); Mean Corpuscular Hemoglobin 28.2 pg (27.0-33.0); Mean Corpuscular Volume 87.1 fL (80.0-98.0); Monocytes Absolute Auto 0.8 X10*3/uL (0.1-1.2); Monocytes Percent Auto 9.9 % (2-11); Neutrophils Absolute Auto 5.5 x10*3/uL (2.0-8.3); Neutrophils Percent Auto 67.4 % (45-73); Platelet Count 422 X10*3/uL (160-400); Red Blood Count 4.04 X10*6/uL (4.60-5.80); Red Cell Distribution Width 13.6 % (11.0-16.0); White Blood Count 8.2 X10*3/uL (4.8-10.8)
[2022-06-18 09:29] LABS: Alanine Aminotransferase 20 U/L (0-40); Albumin Level 3.1 g/dL (3.5-5.0); Alkaline Phosphatase 91 U/L (39-117); Anion Gap 14 (12-20); Aspartate Amino Transferase 14 U/L (5-37); Bilirubin Total 0.4 mg/dL (0.0-1.0); Blood Urea Nitrogen 18 mg/dL (9-16); Carbon Dioxide 25 mmol/L (22-29); Chloride 102 mmol/L (96-108); Estimated Glomerular Filt Rate 53; Glucose Fasting 84 mg/dL (60-99); Potassium 4.8 mmol/L (3.3-5.1); Sodium 136 mmol/L (135-145); Total Protein 5.9 g/dL (6.5-8.0)
[2022-06-18 09:48] LABS: Erythrocyte Sedimentation Rate 69 MM/HR (0-15)
== END 2022-06-18 07:07 | disposition home or self-care (01) ==
LOC: HO.HSH2E 07:06
PROVIDERS: Visit Provider Internal Medicine Medical Oncology
DX: E11.9 Type 2 diabetes mellitus without complications (principal); I10 Essential (primary) hypertension
CPT/HCPCS: 36415; 80053; 85025; 85652

== ENCOUNTER 2022-09-23 20:00 | Outpatient (REF) | payer MEDICARE, BC, SELFPAY ==
[2022-09-23 21:32] LABS: Appearance Urine Clear; Color Urine Yellow; Glucose Urine UA Negative (Negative); Leukocyte Esterase Urine Moderate (2+) (Negative); Nitrite Urine Negative (Negative); PH 5.5 (5.0-9.0); UMIC TRIGGER UACC YES; Urine Blood Negative (Negative); Urine Ketones Negative (Negative); Urine Protein Negative (Neg-Trace)
[2022-09-23 21:45] LABS: Bacteria Urine None Seen (None Seen); Hyaline Casts Urine 0-2 /LPF (0-2); RBC Urine 0-2 /HPF (0-2); Squamous Epithelial Cell Urine 0-2 /HPF (0-2); WBC Urine 0-5 /HPF (0-5)
== END 2022-09-23 20:01 | disposition home or self-care (01) ==
LOC: HO.HSH2E 20:00
PROVIDERS: Visit Provider Internal Medicine Medical Oncology
DX: R41.82 Altered mental status, unspecified (principal)
CPT/HCPCS: 81001

== ENCOUNTER 2022-11-11 15:22 | Outpatient (REF) | payer MEDICARE, BC, SELFPAY | END 2022-11-11 15:23 | disposition home or self-care (01) | LOC: HO.HSH 15:22 | PROVIDERS: Visit Provider Internal Medicine Medical Oncology | DX: R21 Rash and other nonspecific skin eruption (principal) | CPT/HCPCS: 87070; 87205 ==

== ENCOUNTER 2023-03-04 08:02 | Outpatient (REF) | payer MEDICARE, BC, SELFPAY ==
[2023-03-04 08:06] LABS: MANUAL DIFF FLAG NO
[2023-03-04 08:22] LABS: Basophils Percent Auto 0.4 % (0-2); Eosinophils Absolute Auto 0.2 X10*3/uL (0.0-0.4); Eosinophils Percent Auto 2.5 % (0-4); Hematocrit 39.1 % (42.0-52.0); Hemoglobin 12.4 g/dl (14.0-18.0); Imm Gran Abs Auto 0.02 X10*3/uL (0.00-0.03); Imm Gran Pct Auto 0.3 % (0.0-0.4); Lymphocytes Absolute Auto 2.4 X10*3/uL (1.2-4.9); Lymphocytes Percent Auto 31.4 % (20-40); Mean Corpuscular HGB Conc 31.7 g/dl (31.0-36.0); Mean Corpuscular Hemoglobin 28.5 pg (27.0-33.0); Mean Corpuscular Volume 89.9 fL (80.0-98.0); Mean Platelet Volume 11.9 fL (9.4-12.4); Monocytes Absolute Auto 0.8 X10*3/uL (0.1-1.2); Monocytes Percent Auto 9.8 % (2-11); Neutrophils Absolute Auto 4.3 x10*3/uL (2.0-8.3); Neutrophils Percent Auto 55.6 % (45-73); Platelet Count 145 X10*3/uL (160-400); Red Blood Count 4.35 X10*6/uL (4.60-5.80); Red Cell Distribution Width 14.3 % (11.0-16.0); White Blood Count 7.7 X10*3/uL (4.8-10.8)
[2023-03-04 08:32] LABS: Estimated Average Glucose 137 mg/dL; Hemoglobin A1c % 6.4 % (<6.0)
[2023-03-04 08:50] LABS: Alanine Aminotransferase 13 U/L (0-40); Albumin Level 3.4 g/dL (3.5-5.0); Alkaline Phosphatase 94 U/L (39-117); Anion Gap 11 (12-20); Aspartate Amino Transferase 15 U/L (5-37); Bilirubin Total 0.5 mg/dL (0.0-1.0); Blood Urea Nitrogen 13 mg/dL (9-16); Calcium 8.7 mg/dL (8.4-10.2); Carbon Dioxide 34 mmol/L (22-29); Chloride 104 mmol/L (96-108); Cholesterol 87 mg/dL (<200); Estimated Glomerular Filt Rate > 60; Glucose Fasting 121 mg/dL (60-99); HDL Cholesterol 39 mg/dL (>40); LDL Cholesterol Calculated 40 mg/dL (<100); Sodium 145 mmol/L (135-145); Total Protein 6.2 g/dL (6.5-8.0); Triglycerides 44 mg/dL (<150)
[2023-03-04 09:05] LABS: Prostate Specific Antigen 2.12 ng/mL (<0.05-4.0)
[2023-03-04 09:08] LABS: Creatinine Urine 49.47 mg/dL; Microalbumin Urine < 5.0 mg/L
== END 2023-03-04 08:03 | disposition home or self-care (01) ==
LOC: HO.HSH2E 08:02
PROVIDERS: Visit Provider Internal Medicine Medical Oncology
DX: Z12.5 Encounter for screening for malignant neoplasm of prostate (principal); E11.9 Type 2 diabetes mellitus without complications; I10 Essential (primary) hypertension
CPT/HCPCS: 36415; 80053; 80061; 82043; 82570; 83036; 84153; 85025

== ENCOUNTER 2023-05-05 14:42 | Outpatient (REF) | payer MEDICARE, BC, SELFPAY ==
[2023-05-05 14:47] LABS: MANUAL DIFF FLAG NO
[2023-05-05 15:02] LABS: Basophils Percent Auto 0.2 % (0-2); Eosinophils Absolute Auto 0.1 X10*3/uL (0.0-0.4); Eosinophils Percent Auto 0.6 % (0-4); Hematocrit 39.4 % (42.0-52.0); Hemoglobin 12.9 g/dl (14.0-18.0); Imm Gran Abs Auto 0.04 X10*3/uL (0.00-0.03); Imm Gran Pct Auto 0.4 % (0.0-0.4); Lymphocytes Absolute Auto 1.4 X10*3/uL (1.2-4.9); Lymphocytes Percent Auto 15.9 % (20-40); Mean Corpuscular HGB Conc 32.7 g/dl (31.0-36.0); Mean Corpuscular Hemoglobin 28.7 pg (27.0-33.0); Mean Corpuscular Volume 87.8 fL (80.0-98.0); Mean Platelet Volume 11.8 fL (9.4-12.4); Monocytes Absolute Auto 0.8 X10*3/uL (0.1-1.2); Monocytes Percent Auto 9.1 % (2-11); Neutrophils Absolute Auto 6.7 x10*3/uL (2.0-8.3); Neutrophils Percent Auto 73.8 % (45-73); Platelet Count 168 X10*3/uL (160-400); Red Blood Count 4.49 X10*6/uL (4.60-5.80); Red Cell Distribution Width 14.3 % (11.0-16.0)
[2023-05-05 15:27] LABS: Alanine Aminotransferase 20 U/L (0-40); Albumin Level 3.8 g/dL (3.5-5.0); Alkaline Phosphatase 109 U/L (39-117); Anion Gap 14 (12-20); Aspartate Amino Transferase 18 U/L (5-37); Bilirubin Total 0.3 mg/dL (0.0-1.0); Blood Urea Nitrogen 11 mg/dL (9-16); Calcium 8.9 mg/dL (8.4-10.2); Carbon Dioxide 26 mmol/L (22-29); Chloride 102 mmol/L (96-108); Estimated Glomerular Filt Rate > 60; Glucose Random 245 mg/dL (60-115); Potassium 3.9 mmol/L (3.3-5.1); Sodium 138 mmol/L (135-145); Total Protein 6.8 g/dL (6.5-8.0)
[2023-05-05 19:19] LABS: Appearance Urine Clear; Color Urine Yellow; Glucose Urine UA Negative (Negative); Leukocyte Esterase Urine Trace (Negative); Nitrite Urine Negative (Negative); UMIC TRIGGER UA YES; Urine Blood Negative (Negative); Urine Ketones Negative (Negative); Urine Protein Negative (Neg-Trace)
[2023-05-05 19:22] LABS: Bacteria Urine None Seen (None Seen); Hyaline Casts Urine 0-2 /LPF (0-2); RBC Urine 0-2 /HPF (0-2); Squamous Epithelial Cell Urine 0-2 /HPF (0-2); WBC Urine 0-5 /HPF (0-5)
== END 2023-05-05 14:43 | disposition home or self-care (01) ==
LOC: HO.HSH2E 14:42
PROVIDERS: Visit Provider Internal Medicine Medical Oncology
DX: R41.0 Disorientation, unspecified (principal)
CPT/HCPCS: 36415; 80053; 81001; 85025; 87086

== ENCOUNTER 2023-06-27 21:01 | Outpatient (REF) | payer MEDICARE, BC, SELFPAY ==
[2023-06-27 23:30] LABS: Appearance Urine Clear; Color Urine Yellow; Glucose Urine UA 500 mg/dL (Negative); Leukocyte Esterase Urine Trace (Negative); Nitrite Urine Negative (Negative); Specific Gravity - Urine >= 1.030 (1.005-1.025); UMIC TRIGGER UACC YES; Urine Blood Negative (Negative); Urine Ketones Trace mg/dL (Negative); Urine Protein Negative (Neg-Trace)
[2023-06-27 23:40] LABS: Bacteria Urine None Seen (None Seen); Calcium Oxalate Crystals Urine Present; Hyaline Casts Urine 0-2 /LPF (0-2); RBC Urine 0-2 /HPF (0-2); Squamous Epithelial Cell Urine 0-2 /HPF (0-2); UACC Culture Trigger YES
== END 2023-06-27 21:02 | disposition home or self-care (01) ==
LOC: HO.HSH 21:01
PROVIDERS: Visit Provider Internal Medicine
DX: R82.90 Unspecified abnormal findings in urine (principal)
CPT/HCPCS: 81001; 87086

== ENCOUNTER 2023-06-28 14:18 | Outpatient (REF) | payer MEDICARE, BC, SELFPAY ==
[2023-06-29 08:51] LABS: Adenovirus PCR Not Detected (Not Detect.); Bordetella parapertussis PCR Not Detected (Not Detect.); Bordetella pertussis PCR Not Detected (Not Detect.); Chlamydia pneumoniae PCR Not Detected (Not Detect.); Coronavirus 229E PCR Not Detected (Not Detect.); Coronavirus HKU1 PCR Not Detected (Not Detect.); Coronavirus NL63 PCR Not Detected (Not Detect.); Coronavirus OC43 PCR Not Detected (Not Detect.); Human metapneumovirus PCR Not Detected (Not Detect.); Influenza A PCR Not Detected (Not Detect.); Influenza B PCR Not Detected (Not Detect.); Mycoplasma pneumoniae PCR Not Detected (Not Detect.); Parainfluenza 1 PCR Not Detected (Not Detect.); Parainfluenza 2 PCR Not Detected (Not Detect.); Parainfluenza 3 PCR Not Detected (Not Detect.); Parainfluenza 4 PCR Not Detected (Not Detect.); RSV PCR Not Detected (Not Detect.); Rhino/Enterovirus PCR Not Detected (Not Detect.)
[2023-06-29 09:06] LABS: SARS-CoV-2 PCR Not Detected (Not Detect.)
== END 2023-06-28 14:19 | disposition home or self-care (01) ==
LOC: HO.HSH2E 14:18
PROVIDERS: Visit Provider Nurse Practitioner
DX: J44.9 Chronic obstructive pulmonary disease, unspecified (principal); R50.9 Fever, unspecified
CPT/HCPCS: 87633

== ENCOUNTER 2023-07-06 09:21 | Outpatient (AMB) | payer MEDICARE, BC, SELFPAY ==
--- NOTE | 2023-07-06 09:25 | A.OFFVIS_ITS ---
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 The patient is not very talkative but seems to indicate that his right hip has been sore for approximately 1 month. Both the patient and his caregiver deny any recent trauma. Allergies enalapril Allergy (Severe, Verified 09/18/21 07:23) Angioedema capsaicin [From Zostrix] Allergy (Unknown, Verified 09/17/21 14:53) Unknown prochlorperazine [From Compazine] Allergy (Unknown, Verified 09/17/21 14:53) Unknown erythromycin base Allergy (Verified 09/17/21 14:53) Unknown Medication List - Last Reconciled 07/06/23 by Deep Krishna MD acetaminophen 325 mg PO QID PRN aspirin 81 mg PO DAILY atorvastatin 10 mg PO DAILY carvedilol 12.5 mg PO BID cholecalciferol (vitamin D3) 50 mcg PO DAILY cyanocobalamin (vitamin B-12) 1,000 mcg PO DAILY donepezil 10 mg PO DAILY dronabinol 2.5 mg PO BID folic acid 1 mg PO Q2D@1000 guaifenesin 200 mg PO Q4H PRN levalbuterol tartrate 45 mcg/actuation (Xopenex HFA) 2 inhalations inhalation TID loperamide 2 mg PO Q6H PRN lorazepam (Ativan) 0.5 mg PO Q6H PRN melatonin 3 mg PO BEDTIME memantine 5 mg PO BID mirtazapine 15 mg PO BEDTIME paroxetine HCl 40 mg PO DAILY prednisone 40 mg (2 x 20 mg) PO DAILY 5 days quetiapine 50 mg PO TID@0900,1200,1700 quetiapine (Seroquel) 25 mg PO BEDTIME tiotropium bromide (Spiriva with HandiHaler) 1 cap inhalation DAILY tramadol 50 mg PO BEDTIME trazodone 100 mg PO BEDTIME vit C,E-Vy-yzypp-lutein-zeaxan 250-90-40-1 mg (PreserVision AREDS-2) 1 tab PO BID PFSH Medical History Anemia Angioedema Anxiety Dementia Depression Diabetes Hyperlipidemia Hypertension Recurrent falls Restrictive lung disease Family History Other No family history of coronary artery disease Social History Alcohol intake: never Patient Tobacco Use Status: Former Tobacco user Quit Date: remote history of cigar use Advance Directives Date on File: 09/17/21 Physical Exam Extrem Other: Right hip examination shows mild discomfort with passive range of motion, no tenderness over his bursa Results Reviewed Results Reviewed: X-rays of the patient's right hip taken today show mild joint space narrowing, no acute bony abnormalities Assessment & Plan Assessment & Plan (1) Right hip pain: Code(s): M25.551 - Pain in right hip Plan Mr. Jenkins presents with right hip discomfort most likely due to soft tissue stiffness and disuse. At this point the patient does not have any indication for surgical intervention. His x-ray show only mild joint space narrowing, no acute bony abnormalities. I did recommend that the patient continue with activities as tolerated. He could be evaluated by pain management or physical therapy. He will follow up with me on an as-needed basis. Feel free to call me at any time should questions regarding his orthopedic management arise. I spent 19 minutes in reviewing the patient's records and imaging studies, seeing the patient and documenting in the medical record. Orders: Orders XR hip RT min 2V Today M25.551 - Pain in right hip Coding Level of Care Code New Pt Level 2 (50576) Diagnoses Right hip pain M25.551
== END 2023-07-06 10:13 | disposition home or self-care (01) ==
PROVIDERS: PCP Internal Medicine Medical Oncology; Visit Provider Orthopaedic Surgery
DX: M25.551 Pain in right hip (principal)
CPT/HCPCS: 99202

== ENCOUNTER 2023-07-06 10:01 | Outpatient (REF) | payer MEDICARE, BC, SELFPAY ==
--- NOTE | ~2023-07-06 | XR_ITS ---
EXAMINATION: XR HIP, RIGHT CLINICAL INFORMATION: Right hip pain COMPARISON: 11/13/2021 TECHNIQUE: Two views of the right hip. FINDINGS: Suboptimal views. Right hip is grossly unremarkable. No fracture or dislocation. There is 1.9 cm sclerosis of the right pubic ramus, unchanged from prior CT. XR/XR hip RT min 2V IMPRESSION: * Right hip is grossly unremarkable. * There is 1.9 cm sclerosis of the right pubic ramus, unchanged from prior CT.
== END 2023-07-06 10:02 | disposition home or self-care (01) ==
LOC: HO.HOSX 10:01
PROVIDERS: Visit Provider Orthopaedic Surgery
DX: M25.551 Pain in right hip (principal); Z79.899 Other long term (current) drug therapy
CPT/HCPCS: 73502; 99202

== ENCOUNTER 2023-10-13 05:22 | Outpatient (REF) | payer MEDICARE, BC, SELFPAY ==
[2023-10-13 06:29] LABS: Estimated Average Glucose 154 mg/dL
== END 2023-10-13 05:23 | disposition home or self-care (01) ==
LOC: HO.HSH2E 05:22
PROVIDERS: Visit Provider Internal Medicine Endocrinology, Diabetes & Metabolism
DX: E11.9 Type 2 diabetes mellitus without complications (principal)
CPT/HCPCS: 36415; 83036

== ENCOUNTER 2023-12-03 06:37 | Outpatient (REF) | payer MEDICARE, BC, SELFPAY ==
[2023-12-03 06:40] LABS: MANUAL DIFF FLAG NO
[2023-12-03 07:09] LABS: Basophils Percent Auto 0.5 % (0-2); Eosinophils Absolute Auto 0.2 X10*3/uL (0.0-0.4); Eosinophils Percent Auto 2.7 % (0-4); Hematocrit 43.1 % (42.0-52.0); Hemoglobin 13.8 g/dl (14.0-18.0); Imm Gran Abs Auto 0.02 X10*3/uL (0.00-0.03); Imm Gran Pct Auto 0.2 % (0.0-0.4); Lymphocytes Absolute Auto 2.4 X10*3/uL (1.2-4.9); Lymphocytes Percent Auto 28.9 % (20-40); Mean Corpuscular Hemoglobin 29.8 pg (27.0-33.0); Mean Corpuscular Volume 93.1 fL (80.0-98.0); Mean Platelet Volume 11.7 fL (9.4-12.4); Monocytes Absolute Auto 0.9 X10*3/uL (0.1-1.2); Neutrophils Absolute Auto 4.7 x10*3/uL (2.0-8.3); Neutrophils Percent Auto 56.7 % (45-73); Platelet Count 142 X10*3/uL (160-400); Red Blood Count 4.63 X10*6/uL (4.60-5.80); Red Cell Distribution Width 13.4 % (11.0-16.0); White Blood Count 8.2 X10*3/uL (4.8-10.8)
== END 2023-12-03 06:38 | disposition home or self-care (01) ==
LOC: HO.HSH2E 06:37
PROVIDERS: Visit Provider Nurse Practitioner
DX: E11.9 Type 2 diabetes mellitus without complications (principal); J44.9 Chronic obstructive pulmonary disease, unspecified; G30.9 Alzheimer's disease, unspecified; F02.80 Dementia in other diseases classified elsewhere, unspecified severity, without behavioral disturbance, psychotic disturbance, mood disturbance, and anxiety
CPT/HCPCS: 36415; 85025

== ENCOUNTER 2023-12-07 08:16 | Outpatient (REF) | payer MEDICARE, BC, SELFPAY ==
[2023-12-07 09:05] LABS: B Type Natriuretic Peptide < 10 pg/mL (<100)
== END 2023-12-07 08:17 | disposition home or self-care (01) ==
LOC: HO.HSH2E 08:16
PROVIDERS: Visit Provider Internal Medicine Endocrinology, Diabetes & Metabolism
DX: R53.83 Other fatigue (principal)
CPT/HCPCS: 36415; 83880

== ENCOUNTER 2023-12-08 05:20 | Outpatient (REF) | payer MEDICARE, BC, SELFPAY ==
[2023-12-08 06:24] LABS: Anion Gap 12 (12-20); Blood Urea Nitrogen 16 mg/dL (9-16); Carbon Dioxide 31 mmol/L (22-29); Chloride 103 mmol/L (96-108); Estimated Glomerular Filt Rate > 60; Glucose Fasting 166 mg/dL (60-99); Potassium 4.3 mmol/L (3.3-5.1); Sodium 142 mmol/L (135-145)
== END 2023-12-08 05:21 | disposition home or self-care (01) ==
LOC: HO.HSH2E 05:20
PROVIDERS: Visit Provider Internal Medicine Endocrinology, Diabetes & Metabolism
DX: R53.83 Other fatigue (principal)
CPT/HCPCS: 36415; 80048

== ENCOUNTER 2024-04-11 21:36 | Emergency (ER) | payer MEDICARE, BC, SELFPAY ==
--- NOTE | 2024-04-11 | ECG_ITS ---
Test Reason : FALL Blood Pressure : */* mmHG Vent. Rate : 62 BPM Atrial Rate : 62 BPM P-R Int : 184 ms QRS Dur : 178 ms QT Int : 476 ms P-R-T Axes : 22 253 37 degrees QTcB Int : 483 ms Normal sinus rhythm Right bundle branch block Abnormal ECG When compared with ECG of 17-Sep-2021 14:33, No significant change was found Referred By: Deondre Ponce Electronically Signed By: Sudeep Hager
--- NOTE | ~2024-04-11 | CT_ITS ---
CLINICAL HISTORY: Unwitnessed fall, head strike, rule out fracture, CT head without contrast COMPARISON: CT/[place]/SR - CT HEAD/BRAIN WO IV CON - 03/25/22 12:47 EST FINDINGS: Global cerebral volume loss and chronic microvascular ischemic changes. No acute intracranial hemorrhage, extra-axial fluid collection, mass effect, or midline shift. Ventricular system and basilar cisterns are patent. Weber-white matter differentiation is maintained. No gross orbital abnormality. No suspicious or acute bone lesion. Mastoid air cells and paranasal sinuses are predominantly clear. IMPRESSION: 1. No acute intracranial abnormality. 2. Global cerebral volume loss and chronic microvascular ischemic changes. This document has been electronically signed by: Landen Campos MD on 04/11/2024 23:08:22
--- NOTE | ~2024-04-11 | CT_ITS ---
CLINICAL HISTORY: Unwitnessed fall, neck pain, rule out fracture CT cervical spine without contrast Comparison: CT/NH/SR - CT CERVICAL SPINE WO IV CON - 03/25/22 12:47 EST Findings: Degenerative straightening of the usual cervical lordosis. No listhesis. Vertebral body heights maintained. There is no acute fracture. Overall moderate degenerative changes producing severe bilateral neural foraminal narrowing at multiple levels are similar to the previous exam. Regional soft tissues normal. IMPRESSION: No acute findings. This document has been electronically signed by: Landen Campos MD on 04/11/2024 22:53:49
--- NOTE | ~2024-04-11 | XR_ITS ---
CLINICAL HISTORY: fall, redness swelling 4 view left knee Comparison: None Findings: Right total knee arthroplasty changes. Normal appearance of the hardware. No knee joint effusion. No fracture or dislocation. IMPRESSION: 1. No acute findings. This document has been electronically signed by: Landen Campos MD on 04/11/2024 22:37:24
[2024-04-11 21:54] VITALS: BP 131/66; BP 132/74; PULSE 60; PULSE 64; RESP 14; TEMP 36.8; O2SAT 90; O2SAT 99; BMI 32.0
[2024-04-11 23:00] VITALS: BP 124/61; PULSE 63; RESP 12; O2SAT 97
[2024-04-11 23:09] LABS: MANUAL DIFF FLAG NO
[2024-04-11 23:11] LABS: Basophils Percent Auto 0.2 % (0-2); Eosinophils Absolute Auto 0.2 X10*3/uL (0.0-0.4); Eosinophils Percent Auto 2.1 % (0-4); Hematocrit 39.5 % (42.0-52.0); Hemoglobin 12.7 g/dl (14.0-18.0); Imm Gran Abs Auto 0.03 X10*3/uL (0.00-0.03); Imm Gran Pct Auto 0.3 % (0.0-0.4); Lymphocytes Percent Auto 21.3 % (20-40); Mean Corpuscular HGB Conc 32.2 g/dl (31.0-36.0); Mean Corpuscular Hemoglobin 29.3 pg (27.0-33.0); Mean Corpuscular Volume 91.2 fL (80.0-98.0); Mean Platelet Volume 11.7 fL (9.4-12.4); Neutrophils Absolute Auto 6.3 x10*3/uL (2.0-8.3); Neutrophils Percent Auto 66.1 % (45-73); Platelet Count 122 X10*3/uL (160-400); Red Blood Count 4.33 X10*6/uL (4.60-5.80); Red Cell Distribution Width 13.2 % (11.0-16.0); White Blood Count 9.6 X10*3/uL (4.8-10.8)
--- NOTE | 2024-04-11 23:16 | ED.FALL ---
HPI - Fall General Chief Complaint: Fall Stated Complaint: fall Time Seen by Provider: 04/11/24 22:05 Source: EMS and RN notes reviewed Mode of arrival: EMS Limitations: other (Alzheimer's dementia, lacks insight as to why he is here) History of Present Illness ED Provider: Dr. Deondre Ponce HPI Narrative: 84-year-old male with a past medical history of anemia, anxiety, Alzheimer's dementia, depression, diabetes, HLD, HTN, restrictive lung disease, recurrent falls, presenting to the ED via EMS from [facility] for unwitnessed fall prior to arrival. Patient had a large laceration to his right forehead otherwise no other injuries. Patient has Alzheimer's dementia and lacks insight as to why he was here. He has no complaints and is unaware of his laceration on his forehead. Related Data Home Medications ?Medication ?Instructions ?Recorded ?Confirmed aspirin 81 mg tablet,delayed 81 mg PO DAILY 09/17/21 07/06/23 release atorvastatin 10 mg tablet 10 mg PO DAILY 09/17/21 07/06/23 carvedilol 12.5 mg tablet 12.5 mg PO BID 09/17/21 03/25/22 cholecalciferol (vitamin D3) 25 50 mcg PO DAILY 09/17/21 03/25/22 mcg (1,000 unit) tablet cyanocobalamin (vitamin B-12) 500 1,000 mcg PO DAILY 09/17/21 07/06/23 mcg tablet donepezil 10 mg tablet 10 mg PO DAILY 09/17/21 03/25/22 folic acid 1 mg tablet 1 mg PO Q2D@1000 09/17/21 07/06/23 melatonin 3 mg tablet 3 mg PO BEDTIME 09/17/21 07/06/23 memantine 5 mg tablet 5 mg PO BID 09/17/21 07/06/23 paroxetine HCl 40 mg tablet 40 mg PO DAILY 09/17/21 03/25/22 tiotropium bromide 18 mcg capsule 1 cap inhalation DAILY 09/17/21 03/25/22 with inhalation device (Spiriva with HandiHaler) trazodone 100 mg tablet 100 mg PO BEDTIME 09/17/21 07/06/23 vit C 250 mg-vit E 90 mg-zinc 40 1 tab PO BID 09/17/21 03/25/22 mg-copper 1 [id number] capsule (PreserVision AREDS-2) dronabinol 2.5 mg capsule 2.5 mg PO BID 03/25/22 03/25/22 levalbuterol tartrate 45 2 inh inhalation TID 03/25/22 03/25/22 mcg/actuation aerosol inhaler (Xopenex HFA) lorazepam 0.5 mg tablet (Ativan) 0.5 mg PO Q6H PRN Agitation 03/25/22 03/25/22 mirtazapine 15 mg tablet 15 mg PO BEDTIME 03/25/22 03/25/22 quetiapine 50 mg tablet 50 mg PO TID@0900,1200,1700 03/25/22 03/25/22 acetaminophen 325 mg capsule 325 mg PO QID PRN 07/06/23 07/06/23 guaifenesin 100 mg/5 mL oral liquid 200 mg PO Q4H PRN 07/06/23 07/06/23 loperamide 2 mg capsule 2 mg PO Q6H PRN 07/06/23 07/06/23 quetiapine 25 mg tablet (Seroquel) 25 mg PO BEDTIME 07/06/23 07/06/23 tramadol 50 mg tablet 50 mg PO BEDTIME 07/06/23 07/06/23 Previous Rx's ?Medication ?Instructions ?Recorded prednisone 20 mg tablet 40 mg (2 x 20 mg) PO DAILY 5 days 03/25/22 #10 tabs Allergies Allergy/AdvReac Type Severity Reaction Status Date / Time enalapril Allergy Severe Angioedema Verified 04/11/24 21:59 capsaicin [From Zostrix] Allergy Unknown Unknown Verified 04/11/24 21:59 prochlorperazine Allergy Unknown Unknown Verified 04/11/24 21:59 [From Compazine] erythromycin base Allergy Unknown Verified 04/11/24 21:59 Review of Systems Review of Systems: Yes Unobtainable due to mental status [facility] Past Medical History Medical History Anemia Angioedema Anxiety Dementia Depression Diabetes Hyperlipidemia Hypertension Recurrent falls Restrictive lung disease Family History Family History Other No family history of coronary artery disease Social History Social History Alcohol intake: never Patient Tobacco Use Status: Former Tobacco user Advance Directives Date on File: 09/17/21 Physical Exam Vital Signs: Vital Signs: Last Vital Signs Temp 98.2 F 04/11/24 21:54 Pulse 63 04/11/24 23:00 Resp 12 04/11/24 23:00 BP 124/61 04/11/24 23:00 Pulse Ox 97 04/11/24 23:00 O2 Del Method Nasal Cannula 04/11/24 23:00 O2 Flow Rate 2 04/11/24 23:00 BMI result Body Mass Index 32.0 Vital signs were normal Exam: General: Awake, alert in no distress, lacks insight as to why he is here in the emergency depart Head: Normocephalic, 7.0 cm irregular linear laceration to the right forehead extending into the right eyebrow EENT: PERRL, Lids normal, sclera normal, conjunctiva normal, nose normal , ears normal, throat without erythema or exudates Neck: Supple, no adenopathy Lung: breath sounds symmetric, no wheezing, rales or rhonchi Chest: symmetric movement, nontender Heart: regular rate and rhythm, normal S1, S2 no murmurs or rubs Abdomen: soft, non-tender, nondistended, normal bowel sounds Back: no vertebral tenderness, no CVAT Extremities: Superficial abrasions and ecchymosis to the knee, moves all extremities symmetrically Neuro: Awake, alert, oriented to person only, lacks insight as to why he is here, normal speech, cranial nerves intact, moves all extremities symmetrically Psych: Pleasant, cooperative Procedures Laceration 7.0 cm right forehead laceration repair: Site: face Side (If applicable): right Size (cm): 7.0 Description: irregular Depth: simple, single layer Local Anesthetic: lidocaine 1% Amount of anesthesia used (mL): 5 Pre-repair: wound explored and irrigated extensively Skin layer closed with: nylon Size (cm): 5-0 Number of sutures: 10 Technique: simple, interrupted Medical Decision Making Medical Decision Making MDM Narrative: 84-year-old male with a past medical history of anemia, anxiety, Alzheimer's dementia, depression, diabetes, HLD, HTN, restrictive lung disease, recurrent falls, presenting to the ED via EMS from [facility] for unwitnessed fall prior to arrival. Patient had a large laceration to his right forehead otherwise no other injuries. Patient has Alzheimer's dementia and lacks insight as to why he was here. Vital signs were normal. Exam did reveal a 7.0 cm irregular linear laceration to the right forehead extending into the eyebrow. Exam is otherwise unremarkable Differential diagnosis: ?Includes but is not limited to closed head injury, skull fracture, intracranial bleed, neck fracture, neck sprain, anemia, electrolyte abnormality Course: My independent interpretation patient's laboratory evaluation is as follows chronic normocytic anemia with an H&H of 12.7 and 39.6. Chronic thrombocytopenia with a platelet count of a 690055. CMP was unremarkable except for an elevated bicarb of 33. CT scan of the head and cervical spine revealed no acute fractures or intracranial bleed. Twelve EKG was unremarkable and real revealed a normal sinus rhythm with a right bundle-branch block. Patient's presentation is most likely secondary to a trip and fall. Patient's laceration was repaired with 3.0 nylon times 10 sutures. Patient tolerated the procedure well. Bacitracin was applied to the wound and a gauze dressing was applied over this. [facility]. Stitches need to removed in 10 to 14 days. Admission/Observation Consideration of admission/observation: Escalation of care including admission/observation considered (Yes) Lab Data MDM Lab Attestation statement: I reviewed the patient's lab results. 04/11/24 23:02 04/11/24 23:02 Labs: Lab Results 04/11/24 Range/Units 23:02 WBC 9.6 (4.8-10.8) X10*3/uL RBC 4.33 L (4.60-5.80) X10*6/uL Hgb 12.7 L (14.0-18.0) g/dl Hct 39.5 L (42.0-52.0) % MCV 91.2 (80.0-98.0) fL MCH 29.3 (27.0-33.0) pg MCHC 32.2 (31.0-36.0) g/dl RDW 13.2 (11.0-16.0) % Plt Count 122 L (160-400) X10*3/uL MPV 11.7 (9.4-12.4) fL Immature Gran % (Auto) 0.3 (0.0-0.4) % Neut % (Auto) 66.1 (45-73) % Lymph % (Auto) 21.3 (20-40) % [place] % (Auto) 10.0 (2-11) % Eos % (Auto) 2.1 (0-4) % Baso % (Auto) 0.2 (0-2) % Lymph # (Auto) 2.0 (1.2-4.9) X10*3/uL [place] # (Auto) 1.0 (0.1-1.2) X10*3/uL Eos # (Auto) 0.2 (0.0-0.4) X10*3/uL Baso # (Auto) 0.0 (0.0-0.2) X10*3/uL Abs Immat Gran (auto) 0.03 (0.00-0.03) X10*3/uL Absolute Neuts (auto) 6.3 (2.0-8.3) x10*3/uL Absolute Nucleated RBC 0.000 (0.0-0.012) X10*3/uL Nucleated RBC % (auto) 0.0 (0.0-0.2) /100WBC Independent Interpretation I performed an independent interpretation of an: EKG Interpretation: My independent interpretation patient's 12 EKG done at 22:10 hours is as follows: Sinus rhythm with a rate of 62, normal ND interval, prolonged QRS duration of 178 milliseconds, prolonged QTC of 483 milliseconds, right bundle-branch block, no ST segment elevation, no ST segment depression, no significant T-wave abnormalities. Radiology Impression Discussion of test interpretation with radiology: I have reviewed the radiologist's reading. Radiologist Impression: CT head without contrast COMPARISON: CT/ND/SR - CT HEAD/BRAIN WO IV CON - 03/25/22 12:47 EST FINDINGS: Global cerebral volume loss and chronic microvascular ischemic changes. No acute intracranial hemorrhage, extra-axial fluid collection, mass effect, or midline shift. Ventricular system and basilar cisterns are patent. Weber-white matter differentiation is maintained. No gross orbital abnormality. No suspicious or acute bone lesion. Mastoid air cells and paranasal sinuses are predominantly clear. IMPRESSION: 1. No acute intracranial abnormality. 2. Global cerebral volume loss and chronic microvascular ischemic changes. This document has been electronically signed by: Landen Campos MD on 04/11/2024 23:08:22 CT cervical spine without contrast Comparison: CT/ND/SR - CT CERVICAL SPINE WO IV CON - 03/25/22 12:47 EST Findings: Degenerative straightening of the usual cervical lordosis. No listhesis. Vertebral body heights maintained. There is no acute fracture. Overall moderate degenerative changes producing severe bilateral neural foraminal narrowing at multiple levels are similar to the previous exam. Regional soft tissues normal. IMPRESSION: No acute findings. This document has been electronically signed by: Landen Campos MD on 04/11/2024 22:53:49 Chronic Conditions Patient?s care impacted by: Other (Alzheimer's dementia) Discharge Plan Discharge Clinical Impression: Unwitnessed fall Laceration of face Qualifiers: Encounter type: initial encounter Qualified Code(s): S01.81XA - Laceration without foreign body of other part of head, initial encounter Closed head injury Qualifiers: Encounter type: initial encounter Qualified Code(s): S09.90XA - Unspecified injury of head, initial encounter Patient Disposition: Home, Self-Care Instructions: Head Injury (ED) Additional Instructions: Your forehead/face laceration was repaired with 3.0 nylon sutures times 10 sutures. The sutures need to be removed in 10-14 days by your doctor, in urgent care clinic or in the emergency department. Apply bacitracin twice a day to the wound until the sutures are removed The CT scan of your head and cervical spine revealed no fracture/broken bones or bleeding in the brain. You had a CBC and comprehensive metabolic panel which was unremarkable Your 12 EKG was normal At this time I suspect that you tripped and fell and sustained a closed head injury. Please follow the head injury instructions. Continue taking medications as prescribed by your providers Follow-up with your doctor in 2 days. Please return to the emergency department if your symptoms get worse or if you develop any symptoms that are concerning to you. Prescriptions: No Action aspirin 81 mg Tablet,Delayed Release (Dr/Ec) 81 mg PO DAILY atorvastatin 10 mg Tablet 10 mg PO DAILY carvedilol 12.5 mg Tablet 12.5 mg PO BID Rx Instructions: must administer with a meal/food cholecalciferol (vitamin D3) 25 mcg (1,000 unit) Tablet 50 mcg PO DAILY cyanocobalamin (vitamin B-12) 500 mcg Tablet 1,000 mcg PO DAILY donepezil 10 mg Tablet 10 mg PO DAILY folic acid 1 mg Tablet 1 mg PO Q2D@1000 melatonin 3 mg Tablet 3 mg PO BEDTIME memantine 5 mg Tablet 5 mg PO BID paroxetine HCl 40 mg Tablet 40 mg PO DAILY PreserVision AREDS-2 250-90-40-1 mg Capsule 1 tab PO BID Spiriva with HandiHaler 18 mcg Capsule, W/Inhalation Device 1 cap INHALATION DAILY trazodone 100 mg Tablet 100 mg PO BEDTIME dronabinol 2.5 mg Capsule 2.5 mg PO BID Rx Instructions: administer before lunch and evening meal/dinner lorazepam [Ativan] 0.5 mg Tablet 0.5 mg PO Q6H PRN (Reason: Agitation) mirtazapine 15 mg Tablet 15 mg PO BEDTIME levalbuterol tartrate [Xopenex HFA] 45 mcg/actuation Hfa Aerosol Inhaler 2 inh INHALATION TID quetiapine 50 mg Tablet 50 mg PO TID@0900,1200,1700 prednisone 20 mg tablet 40 mg PO DAILY 5 Days Qty: 10 0RF quetiapine [Seroquel] 25 mg tablet 25 mg PO BEDTIME tramadol 50 mg tablet 50 mg PO BEDTIME guaifenesin 100 mg/5 mL liquid 200 mg PO Q4H PRN loperamide 2 mg capsule 2 mg PO Q6H PRN acetaminophen 325 mg capsule 325 mg PO QID PRN Print Language: Panamanian
[2024-04-11 23:22] LABS: Alanine Aminotransferase 16 U/L (0-40); Albumin Level 3.4 g/dL (3.5-5.0); Alkaline Phosphatase 105 U/L (39-117); Anion Gap 9 (12-20); Aspartate Amino Transferase 22 U/L (5-37); Bilirubin Total 0.3 mg/dL (0.0-1.0); Blood Urea Nitrogen 14 mg/dL (9-16); Calcium 8.4 mg/dL (8.4-10.2); Carbon Dioxide 33 mmol/L (22-29); Chloride 105 mmol/L (96-108); Creatinine Clr Calc Pharmacy 74.8; Estimated Glomerular Filt Rate > 60; Glucose Random 113 mg/dL (60-115); Potassium 3.9 mmol/L (3.3-5.1); Sodium 143 mmol/L (135-145); Total Protein 6.1 g/dL (6.5-8.0)
[2024-04-11] MEDS: Lidocaine HCl 1 % MPF 5 ML VIAL INFILTRATI (23:48)
[2024-04-11] MEDS: Bacitracin Oint 0.9 GM PACKET 1 APPL TOPICAL (23:52)
--- NOTE | 2024-04-12 00:03 | PC.NURSE ---
Spoke with Precious at the [facility]. Planning to discharge to [facility]. Sutures applied by Dr. Ponce at the bedside to left side of forehead. Bacitracin applied to the area and wrapped in gauze. No acute distress. C-spine collar was removed by Dr. Ponce as well. Vitals remain stable. Care ongoing by this RN. Awaiting EMS transport for discharge.
[2024-04-12 00:55] VITALS: BP 124/61; PULSE 63; RESP 12; TEMP 36.7; O2SAT 97
== END 2024-04-12 00:55 | disposition home or self-care (01) ==
PROVIDERS: Emergency Provider Emergency Medicine Emergency Medical Services
DX: S01.81XA Laceration without foreign body of other part of head, initial encounter (principal); S09.90XA Unspecified injury of head, initial encounter; W19.XXXA Unspecified fall, initial encounter; R29.6 Repeated falls; Z91.81 History of falling; I45.10 Unspecified right bundle-branch block; D69.6 Thrombocytopenia, unspecified; D64.9 Anemia, unspecified; Y93.9 Activity, unspecified; Y92.129 Unspecified place in nursing home as the place of occurrence of the external cause; Y99.9 Unspecified external cause status; E11.9 Type 2 diabetes mellitus without complications; I10 Essential (primary) hypertension; E78.5 Hyperlipidemia, unspecified; G30.9 Alzheimer's disease, unspecified; F02.80 Dementia in other diseases classified elsewhere, unspecified severity, without behavioral disturbance, psychotic disturbance, mood disturbance, and anxiety; Z79.02 Long term (current) use of antithrombotics/antiplatelets; Z79.82 Long term (current) use of aspirin; Z79.899 Other long term (current) drug therapy
CPT/HCPCS: 12014; 36415; 70450; 72125; 73564; 80053; 85025; 93005; 99284; J2003

== ENCOUNTER → 2024-04-11 22:10 | Outpatient (BNV) | payer MEDICARE, BC, SELFPAY | PROVIDERS: Emergency Provider Emergency Medicine Emergency Medical Services; Visit Provider Internal Medicine Cardiovascular Disease | DX: R94.31 Abnormal electrocardiogram [ECG] [EKG] (principal) | CPT/HCPCS: 93010 ==

== ENCOUNTER → 2024-04-11 22:20 | Outpatient (BNV) | payer MEDICARE, BC, SELFPAY | PROVIDERS: Emergency Provider Emergency Medicine Emergency Medical Services; Visit Provider Radiology Diagnostic Radiology | DX: M54.2 Cervicalgia (principal); S01.81XA Laceration without foreign body of other part of head, initial encounter; M25.461 Effusion, right knee; W19.XXXA Unspecified fall, initial encounter | CPT/HCPCS: 70450; 72125; 73564 ==

== ENCOUNTER 2024-04-26 05:46 | Outpatient (REF) | payer MEDICARE, BC, SELFPAY ==
[2024-04-26 05:50] LABS: MANUAL DIFF FLAG NO
--- OUTSIDE RECORDS SUMMARY | 2024-04-26 05:50 | XMS_ITS | Clinical Summary ---
Author Organization [facility] Address [address] [place] [address] Care Team Providers Care Certified Surgical First Assistant Name Role Phone Unavailable Primary Care Provider Unavailabl e Allergies Active Allergy Reactions Criticality Noted Date Comments Sulindac 08/04/2023 Prochlorperazine 08/04/2023 Enalapril 08/04/2023 Erythromycin 08/04/2023 Capsaicin 08/04/2023 Medications albuterol 108 (90 Base) MCG/ACT inhaler Inhale 2 puffs every 4 (four) hours if needed for wheezing. Active tiotropium (Spiriva) [address] 1 capsule into inhaler and inhale in the morning. Active aspirin 81 MG EC tablet Take 81 mg by mouth Once per day. Active atorvastatin (Lipitor) 10 MG tablet Take 10 mg by mouth Once per day. Active benzoyl peroxide 10 % gel Apply 1 Application. topically Once per day. Active alendronate-cho lecalciferol (Fosamax Plus D) 70-5600 MG-UNIT tablet Take 2 tablets by mouth Once per day. Take in the morning with a full glass of water, on an empty stomach, and do not take anything else by mouth or lie down for the next 30 min. Active cyanocobalamin (Vitamin B-12) 500 MCG tablet Take 1,000 mcg by mouth Once per day. Active folic acid (Folvite) 1 MG tablet Take 1 mg by mouth every other day. Active melatonin 3 MG tablet Take 3 mg by mouth at bedtime. Active memantine (Namenda) 5 MG tablet Take 5 mg by mouth 2 times daily. Active mirtazapine (Remeron) 15 MG tablet Take 15 mg by mouth at bedtime. Active PARoxetine (Paxil) 40 MG tablet Take 40 mg by mouth 1 (one) time each day. Active Multiple Vitamins-Minera ls (Eye Vitamins) capsule Take by mouth. PRESERvision AREDS 2 250 90 40 Active QUEtiapine (SEROquel) 50 MG tablet Take 50 mg by mouth 3 times daily. Active traZODone (Desyrel) 100 MG tablet Take 100 mg by mouth at bedtime. Active QUEtiapine (SEROquel) 25 MG tablet Take 25 mg by mouth at bedtime. Active guaiFENesin (Robitussin) 100 MG/5ML liquid Take 200 mg by mouth every 6 (six) hours if needed for cough. Active loperamide (Imodium A-D) 2 MG tablet Take 2 mg by mouth if needed in the morning and at bedtime for diarrhea. Active magnesium hydroxide (Milk of Magnesia) 400 MG/5ML suspension Take 30 mL by mouth if needed at bedtime for constipation. Active traMADol (Ultram) 50 MG tablet Take by mouth. Activ e acetaminophen (Tylenol) 325 MG tablet Take 650 mg by mouth every 4 (four) hours if needed for mild pain. Active bisacodyl (Fleet Bisacodyl) 10 MG/30ML enema Insert 10 mg into the rectum 1 (one) time. Active glucose 4 g chewable tablet Chew 16 g if needed for low blood sugar. Active Social History Tobacco Use Types Packs/Day Years Used Date Smoking Tobacco: Never Assessed Sex and Gender Information Value Date Recorded Sex Assigned at Male 01/26/2022 10:40 AM EDT Legal Sex Male 10:40 AM EDT Gender Identity Male 01/26/2022 10:40 AM EDT Sexual Orientation Straight 01/26/2022 10 :40 AM EDT Plan of Treatment Upcoming Encounters Date Type Department Care Team (Late st Contact Info) Description 05/31/2024 10:00 AM EST Office Visit [facility] [address] [place] [address] Zaire Coon, DMD [address] [place] [address] Health Maintenance Due Date Last Done Comments Dental Prophylaxis 1942 Dental X-Ray: Bitewings 1942 Dental X-Ray: Full Mouth 1942 Depression Screening 1942 Lipid Panel 1942 SDOH Screening 1942 Alcohol/Substance Use Screening 1954 Tobacco Screening 1954 Zoster Vaccines (1 of 2) 02/13/1992 RSV Patients and Patients Aged 60 years or older (1 - 1-dose 75+ series) 2017 Pneumococcal Vaccine: 50+ Years (2 of 2 - PPSV23 or PCV20) 08/10/2019 08/09/2018, 02/06/2016 COVID-19 Vaccine ( season) 2023 01/21/2023, 12/15/2021, 10/20/2021, Additional history exists Dental Oral Exam 02/05/2024 08/04/2023 DTaP/Tdap/Td Vaccines (2 - Td or Tdap) 06/18/2031 06/17/2021 Influenza Vaccine Completed 01/18/2024, , 12/29/2021, Additional history exists HIB Vaccines Aged Out No longer eligi ble based on patient's age to complete this topic HPV Vaccines Aged Out No longer eligi ble based on patient's age to complete this topic Hepatitis A Vaccines Aged Out No long er eligible based on patient's age to complete this topic Hepatitis B Vaccines Aged Out No long er eligible based on patient's age to complete this topic IPV Vaccines Aged Out No longer eligi ble based on patient's age to complete this topic Meningococcal Vaccine Aged Out No zheng margaret eligible based on patient's age to complete this topic RSV under 20 months Aged Out No longe r eligible based on patient's age to complete this topic Rotavirus Vaccines Aged Out No longer eligible based on patient's age to complete this topic Procedures Procedure Name Priority Date/Time Associated Diagnosis Comments PERIODIC ORAL EVALUATION - ESTABLISHED PATIENT Routine 08/04/2023 1:00 PM EDT from Last 3 Months or Most Recently Relevant to Health Maintenance
[2024-04-26 06:01] LABS: Basophils Percent Auto 0.2 % (0-2); Eosinophils Absolute Auto 0.2 X10*3/uL (0.0-0.4); Eosinophils Percent Auto 2.4 % (0-4); Hematocrit 42.9 % (42.0-52.0); Hemoglobin 13.5 g/dl (14.0-18.0); Imm Gran Abs Auto 0.02 X10*3/uL (0.00-0.03); Imm Gran Pct Auto 0.2 % (0.0-0.4); Lymphocytes Absolute Auto 1.9 X10*3/uL (1.2-4.9); Mean Corpuscular HGB Conc 31.5 g/dl (31.0-36.0); Mean Corpuscular Hemoglobin 29.7 pg (27.0-33.0); Mean Corpuscular Volume 94.5 fL (80.0-98.0); Mean Platelet Volume 11.5 fL (9.4-12.4); Monocytes Absolute Auto 0.9 X10*3/uL (0.1-1.2); Monocytes Percent Auto 11.1 % (2-11); Neutrophils Absolute Auto 5.2 x10*3/uL (2.0-8.3); Neutrophils Percent Auto 63.1 % (45-73); Platelet Count 168 X10*3/uL (160-400); Red Blood Count 4.54 X10*6/uL (4.60-5.80); Red Cell Distribution Width 13.3 % (11.0-16.0); White Blood Count 8.3 X10*3/uL (4.8-10.8)
[2024-04-26 06:15] LABS: Alanine Aminotransferase 19 U/L (0-40); Albumin Level 3.4 g/dL (3.5-5.0); Alkaline Phosphatase 112 U/L (39-117); Anion Gap 10 (12-20); Aspartate Amino Transferase 21 U/L (5-37); Bilirubin Total 0.3 mg/dL (0.0-1.0); Blood Urea Nitrogen 12 mg/dL (9-16); Calcium 8.7 mg/dL (8.4-10.2); Carbon Dioxide 37 mmol/L (22-29); Chloride 102 mmol/L (96-108); Estimated Glomerular Filt Rate > 60; Glucose Random 111 mg/dL (60-115); Potassium 3.9 mmol/L (3.3-5.1); Sodium 145 mmol/L (135-145); Total Protein 6.8 g/dL (6.5-8.0)
== END 2024-04-26 05:47 | disposition home or self-care (01) ==
LOC: HO.HSH2E 05:46
PROVIDERS: Visit Provider Internal Medicine Endocrinology, Diabetes & Metabolism
DX: R41.0 Disorientation, unspecified (principal)
CPT/HCPCS: 36415; 80053; 85025